=== PATIENT | female | born 1975 | race Caucasian/White ===

== ENCOUNTER 2018-06-21 19:38 | Emergency (ER) | payer MEDICAID, OTHER ==
--- NOTE | 2018-06-21 20:04 | EDM.PDOC ---
ED HPI GENERAL MEDICAL PROBLEM - General Chief Complaint: Respiratory Problem Stated Complaint: PT HAS COUGH Time Seen by Provider: 06/21/18 19:50 Source of Information: Reports: Patient History Limitations: Reports: No Limitations - History of Present Illness INITIAL COMMENTS - FREE TEXT/NARRATIVE: HISTORY AND PHYSICAL: History of present illness: Patient is a 43-year-old female presents to the ED today for a cough 2 days. Patient states on a few occasions she has coughed so hard she is vomited. Patient states she's been able to eat and drink per normal and then the cough denies any other complaints. Patient denies fever, chills, chest pain, shortness of breath. Denies headache. Denies abdominal pain, diarrhea, constipation, or dysuria. Has not noted any blood in urine or stool. Patient has been eating and drinking appropriately. Review of systems: As per history of present illness and below otherwise all systems reviewed and negative. Past medical history: As per history of present illness and as reviewed below otherwise noncontributory. Surgical history: As per history of present illness and as reviewed below otherwise noncontributory. Social history: See social history for further information Family history: As per history of present illness and as reviewed below otherwise noncontributory. Physical exam: General: Patient is alert, orientated, and in no acute distress. She is sitting comfortably on the exam table. HEENT: Atraumatic, normocephalic, pupils equal and reactive bilaterally, negative for conjunctival pallor or scleral icterus, mucous membranes moist, TMs normal bilaterally, throat clear, neck supple, nontender, trachea midline. No drooling or trismus noted. No meningeal signs. No hot potato voice noted. Lungs: Clear to auscultation, breath sounds equal bilaterally, chest nontender. Heart: S1S2, regular rate and rhythm without overt murmur Abdomen: Soft, nondistended, nontender. Negative for masses or hepatosplenomegaly. Negative for costovertebral tenderness. Pelvis: Stable nontender. Genitourinary: Deferred. Rectal: Deferred. Skin: Intact, warm, dry. No lesions or rashes noted. Extremities: Atraumatic, negative for cords or calf pain. Neurovascular unremarkable. Neuro: Awake, alert, oriented. Cranial nerves II through XII unremarkable. Cerebellum unremarkable. Motor and sensory unremarkable throughout. Exam nonfocal. Notes: Will do labs and imaging today. Discussed findings lab work and imaging with patient. Discussed the importance for follow-up with her primary care provider. Supportive care measures were reviewed and discussed. Voices understanding and is agreeable to plan of care. Denies any further questions or concerns at this time. Diagnostics: Strep, Chest XR Therapeutics: None Prescription: Anju Okeefe Impression: Bronchitis Plan: 1. Use inhaler/medications as prescribed. You can alternate ibuprofen or Tylenol as directed for pain and discomfort. 2. Follow-up with your primary care provider as discussed. 3. Return to ED as needed as discussed. Definitive disposition and diagnosis as appropriate pending reevaluation and review of above. 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 ED EXAM, GENERAL - Physical Exam Exam: See Below (See dictation) Course - Vital Signs Last Recorded V/S: Last Vital Signs Temp 36.7 C 06/21/18 19:45 Pulse 93 06/21/18 19:45 Resp 18 06/21/18 19:45 BP 142/83 H 06/21/18 19:45 Pulse Ox 95 06/21/18 19:45 - Orders/Labs/Meds Orders: Active Orders 24 hr Category Date Time Status Chest 2V [CR] Stat Exams 06/21/18 19:55 Taken CULTURE STREP A CONFIRMATION [RM] Stat Lab 06/21/18 20:08 Results STREP SCRN A RAPID W CULT CONF [RM] Stat Lab 06/21/18 20:08 Results Labs: Laboratory Tests 06/21/18 06/21/18 Range/Units 20:12 20:12 WBC 5.83 (4.0-11.0) K/uL RBC 4.72 (4.30-5.90) M/uL Hgb 15.0 (12.0-16.0) g/dL Hct 43.8 (36.0-46.0) % MCV 92.8 (80.0-98.0) fL MCH 31.8 (27.0-32.0) pg MCHC 34.2 (31.0-37.0) g/dL RDW Std Deviation 46.4 (28.0-62.0) fl RDW Coeff of Natalie 14 (11.0-15.0) % Plt Count 173 (150-400) K/uL MPV 11.50 (7.40-12.00) fL Neut % (Auto) 63.9 (48.0-80.0) % Lymph % (Auto) 19.9 (16.0-40.0) % [place] % (Auto) 11.0 (0.0-15.0) % Eos % (Auto) 5.0 (0.0-7.0) % Baso % (Auto) 0.2 (0.0-1.5) % Neut # (Auto) 3.7 (1.4-5.7) K/uL Lymph # (Auto) 1.2 (0.6-2.4) K/uL [place] # (Auto) 0.6 (0.0-0.8) K/uL Eos # (Auto) 0.3 (0.0-0.7) K/uL Baso # (Auto) 0.0 (0.0-0.1) K/uL Nucleated RBC % 0.0 /100WBC Nucleated RBCs # 0 K/uL Sodium 141 (136-145) mmol/L Potassium 3.7 (3.5-5.1) mmol/L Chloride 106 (98-107) mmol/L Carbon Dioxide 23.8 (21.0-32.0) mmol/L BUN 9 (7.0-18.0) mg/dL Creatinine 1.0 (0.6-1.0) mg/dL Est Cr Clr Drug Dosing 63.28 mL/min Estimated GFR (MDRD) > 60.0 ml/min Glucose 44 L (74-106) mg/dL Calcium 8.6 (8.5-10.1) mg/dL Total Bilirubin 0.2 (0.2-1.0) mg/dL AST 56 H (15-37) IU/L ALT 44 (14-63) IU/L Alkaline Phosphatase 88 (46-116) U/L Total Protein 7.1 (6.4-8.2) g/dL Albumin 3.7 (3.4-5.0) g/dL Globulin 3.4 (2.6-4.0) g/dL Albumin/Globulin Ratio 1.1 (0.9-1.6) Departure - Departure Time of Disposition: 22:11 Disposition: Home, Self-Care 01 Clinical Impression: Bronchitis - Discharge Information Referrals: Lalitha Whaley DO [Primary Care Provider] - Forms: ED Department Discharge Additional Instructions: The following information is given to patients seen in the emergency department who are being discharged to home. This information is to outline your options for follow-up care. We provide all patients seen in our emergency department with a follow-up referral. The need for follow-up, as well as the timing and circumstances, are variable depending upon the specifics of your emergency department visit. If you don't have a primary care physician on staff, we will provide you with a referral. We always advise you to contact your personal physician following an emergency department visit to inform them of the circumstance of the visit and for follow-up with them and/or the need for any referrals to a consulting specialist. The emergency department will also refer you to a specialist when appropriate. This referral assures that you have the opportunity for follow-up care with a specialist. All of these measure are taken in an effort to provide you with optimal care, which includes your follow-up. Under all circumstances we always encourage you to contact your private physician who remains a resource for coordinating your care. When calling for follow-up care, please make the office aware that this follow-up is from your recent emergency room visit. If for any reason you are refused follow-up, please contact the [facility] Emergency Department at and asked to speak to the emergency department charge nurse. [facility] [address] [place], [place] [address], [place] [address] [facility] [address] [place] [address] 1. Use inhaler/medication as prescribed. You can alternate ibuprofen or Tylenol as directed for pain and discomfort. 2. Follow-up with your primary care provider as discussed. 3. Return to ED as needed as discussed. - My Orders Last 24 Hours: My Active Orders 06/21/18 19:55 Chest 2V [CR] Stat 06/21/18 20:08 CULTURE STREP A CONFIRMATION [RM] Stat STREP SCRN A RAPID W CULT CONF [RM] Stat - Assessment/Plan Last 24 Hours: My Active Orders 06/21/18 19:55 Chest 2V [CR] Stat 06/21/18 20:08 CULTURE STREP A CONFIRMATION [RM] Stat STREP SCRN A RAPID W CULT CONF [RM] Stat
[2018-06-21 20:41] LABS: CHLORIDE,CL 106 mmol/L (98-107); SODIUM,NA 141 mmol/L (136-145)
--- NOTE | 2018-06-23 09:50 | CR ---
EXAM DATE: 06/21/18 PATIENT'S AGE: 43 Patient: JOB COTE Facility: [facility] : 1975 Study: XRay-Chest -06/21/2018 10:00:51 PM Ordering Physician: jose m Final Report: INDICATION: Shortness of breath TECHNIQUE: Chest 2 views. COMPARISON: August 25, 2013 FINDINGS: Cardiovascular and mediastinum: Heart size and vasculature are normal in caliber and appearance. Mediastinum is within normal limits. Lungs and pleural spaces: Lungs are clear. No sign of infiltrate or mass. No sign of pleural effusion. No pneumothorax. Bones and soft tissues: No significant findings. IMPRESSION: No sign of acute disease. Dictated by Rajwinder Childs MD @ Jun 21 2018 10:14PM Signed by: Rajwinder Childs MD @06/21/2018 10:14:13 PM (Electronic Signature) Report Signed by Proxy. [facility]
== END 2018-06-21 22:25 | disposition home or self-care (01) ==
LOC: MW.ED 19:38
DX: J40 Bronchitis, not specified as acute or chronic (principal); F17.210 Nicotine dependence, cigarettes, uncomplicated; E10.9 Type 1 diabetes mellitus without complications
CPT/HCPCS: 36415; 71046; 71046-26; 80053; 85025; 87081; 87804; 87880-QW; 99283-25

== ENCOUNTER 2018-08-10 09:07 | Emergency (ER) | payer MEDICAID ==
--- NOTE | 2018-08-10 09:51 | EDM.PDOC ---
ED HPI GENERAL MEDICAL PROBLEM - General Chief Complaint: ENT Problem Stated Complaint: TOOTH INFECTION Time Seen by Provider: 08/10/18 09:27 - History of Present Illness INITIAL COMMENTS - FREE TEXT/NARRATIVE: HISTORY AND PHYSICAL: History of present illness: Patient's a 43-year-old female presents with a concern of dental pain and possible dental abscess. She denies fever chills nausea vomiting or other complaints Review of systems: As per history of present illness and below otherwise all systems reviewed and negative. Past medical history: As per history of present illness and as reviewed below otherwise noncontributory. Surgical history: As per history of present illness and as reviewed below otherwise noncontributory. Social history: No reported history of drug or alcohol abuse. Family history: As per history of present illness and as reviewed below otherwise noncontributory. Physical exam: HEENT: Atraumatic, normocephalic, pupils reactive, negative for conjunctival pallor or scleral icterus, mucous membranes moist, throat clear, neck supple, nontender, trachea midline. Generally poor dentition patient does have some tenderness in the region of her lateral incisor to palpation of the gingiva on the right side. Lungs: Clear to auscultation, breath sounds equal bilaterally, chest nontender. Heart: S1S2, regular, negative for clicks, rubs, or JVD. Abdomen: Soft, nondistended, nontender. Negative for masses or hepatosplenomegaly. Negative for costovertebral tenderness. Pelvis: Stable nontender. Genitourinary: Deferred. Rectal: Deferred. Extremities: Atraumatic, negative for cords or calf pain. Neurovascular unremarkable. Neuro: Awake, alert, oriented. Cranial nerves II through XII unremarkable. Cerebellum unremarkable. Motor and sensory unremarkable throughout. Exam nonfocal. Diagnostics: None Therapeutics: Dental balls Impression: Dentalgia Definitive disposition and diagnosis as appropriate pending reevaluation and review of above. 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 ED EXAM, GENERAL - Physical Exam Exam: See Below (See dictation) Course - Vital Signs Last Recorded V/S: Last Vital Signs Temp 36.3 C 08/10/18 09:18 Pulse 107 H 08/10/18 09:18 Resp 18 08/10/18 09:18 BP 132/81 08/10/18 09:18 Pulse Ox 93 L 08/10/18 09:18 Departure - Departure Time of Disposition: 09:50 Disposition: Home, Self-Care 01 Condition: Good Clinical Impression: Dentalgia, Dental abscess - Discharge Information Referrals: PCP,Unknown [Primary Care Provider] - Additional Instructions: The following information is given to patients seen in the emergency department who are being discharged to home. This information is to outline your options for follow-up care. We provide all patients seen in our emergency department with a follow-up referral. The need for follow-up, as well as the timing and circumstances, are variable depending upon the specifics of your emergency department visit. If you don't have a primary care physician on staff, we will provide you with a referral. We always advise you to contact your personal physician following an emergency department visit to inform them of the circumstance of the visit and for follow-up with them and/or the need for any referrals to a consulting specialist. The emergency department will also refer you to a specialist when appropriate. This referral assures that you have the opportunity for followup care with a specialist. All of these measure are taken in an effort to provide you with optimal care, which includes your followup. Under all circumstances we always encourage you to contact your private physician who remains a resource for coordinating your care. When calling for followup care, please make the office aware that this follow-up is from your recent emergency room visit. If for any reason you are refused follow-up, please contact the [facility] emergency department at and asked to speak to the emergency department charge nurse. Maria Alejandra Del Valle as prescribed dental balls as directed Motrin/Tylenol as directed follow-up with dentist return as needed as discussed
[2018-08-10] MEDS ORDERED: Lidocaine 2% Viscous Solution 15 ML Cup PO ONE (09:54)
[2018-08-10] MEDS ORDERED: Benzocaine 20% Topical Spray UD MUCMEM ONE (09:55)
== END 2018-08-10 10:04 | disposition home or self-care (01) ==
LOC: MW.ED 09:07
DX: K04.7 Periapical abscess without sinus (principal); E10.9 Type 1 diabetes mellitus without complications; F17.210 Nicotine dependence, cigarettes, uncomplicated
CPT/HCPCS: 99282; A9270; 99283

== ENCOUNTER 2019-02-24 18:06 | Observation (INO) | payer MEDICAID ==
[2019-02-24] MEDS ORDERED: Sodium Chloride 0.9% 10 ML Syringe FLUSH PRN (18:14)
[2019-02-24] MEDS ORDERED: Sodium Chloride 0.9% 2.5 ML Syringe FLUSH PRN (18:14)
[2019-02-24] MEDS ORDERED: Sodium Chloride 0.9% 1,000 ML IV ONE (18:14)
--- NOTE | 2019-02-24 18:21 | EDM.PDOC ---
ED HPI GENERAL MEDICAL PROBLEM - General Stated Complaint: EMS ARRIVAL Time Seen by Provider: 02/24/19 18:12 - History of Present Illness INITIAL COMMENTS - FREE TEXT/NARRATIVE: HISTORY AND PHYSICAL: History of present illness: The patient is a 44-year-old female with a history of type 1 diabetes who is a regular alcohol drinker according to the daughter, drinking at least heavily 4 nights a week, who presents with confusion and altered mental status that the daughter noticed this afternoon at about 5 PM. The patient was last spoken to normal by a neighbor at 8 AM and the daughter has not seen her until she went home to find her and noticed that she was confused and not acting appropriately. Nobody saw this patient throughout the day and the patient does not offer much history. The patient initially refused to come via EMS and was refusing to calm with the daughter and police were called to the scene and she was brought here in handcuffs for further care and evaluation. Here in the ED she denies any complaints but does not answer questions appropriately and yawns repeatedly on my evaluation. She is moving all extremities and her voice and speech are intact and not garbled. According to the daughter this patient usually calls her throughout the day and she did not receive any phone calls. There is no evidence of any trauma or disruption of the household according to family and EMS. The patient says that she ate today and she did not have any vomiting but again she will not answer my questions about shortness of breath chest pain or other systemic issues. The daughter says she was in her usual state of good health when she dropped her off at home last evening from the bar. According to the daughter she was called to come into the carotids and bring her home after drinking heavily last evening. Further events throughout the course the day are unknown as the patient was by herself. The daughter pulled nursing aside and is concerned that she might have drugs on board but the patient does not have a history of chronic drug use. Review of systems: As per history of present illness and below otherwise all systems reviewed and negative. Past medical history: As per history of present illness and as reviewed below otherwise noncontributory. Surgical history: As per history of present illness and as reviewed below otherwise noncontributory. Social history: No reported history of drug or alcohol abuse. Family history: As per history of present illness and as reviewed below otherwise noncontributory. Physical exam: General: Well-developed well-nourished female who yawns frequently in the ED but is moving all extremities and has normal speech. She is not breathless and vital signs are noted by me. HEENT: Atraumatic, normocephalic, pupils reactive, negative for conjunctival pallor or scleral icterus, mucous membranes moist, throat clear, neck supple, nontender, trachea midline. As no evidence of any soft tissue injury to the scalp or skull and there is no facial trauma appreciated. Teeth and bite are intact and there is no tongue injury. Lungs: Clear to auscultation but diminished air exchange in the bases and poor effort. There is no work of breathing wheezing or stridor,, breath sounds equal bilaterally, chest nontender. Heart: S1S2, regular rhythm and tachycardic rate on my evaluation but no murmurs , negative for clicks, rubs, or JVD. Abdomen: Soft, nondistended, nontender. Negative for masses or hepatosplenomegaly. Negative for costovertebral tenderness. Pelvis: Stable nontender. Genitourinary: Deferred. Rectal: Deferred. Extremities: Atraumatic, negative for cords or calf pain. Neurovascular unremarkable. No defects deformities or tenderness appreciated on extremities and there is full range of motion without deficits Neuro: Awake, alert, patient is confused and will not follow simple commands and perseverates with her answers. Cranial nerves II through XII unremarkable. Cerebellum unremarkable. Motor and sensory unremarkable throughout. Exam nonfocal. Back: There are no midline step-offs in his defects of the thoracic or lumbar spine and no soft tissue injuries are appreciated Diagnostics: EKG CBC CMP amylase lipase INR Tylenol and aspirin levels alcohol level ammonia level magnesium venous blood gas troponin TSH chest x-ray CT scan of the head. UDS [employer]: IV O2 monitor IV fluids According to the history were given the last known well time of this patient is 8 AM. 1908: this was discussed with the hospitalist Dr. Olea who accepts the patient for observatioon to telemetry. He is aware that the labs are pending and we will recontact him with abnormalities. Impression: altered mental status with history of chronic alcohol use/abuse Definitive disposition and diagnosis as appropriate pending reevaluation and review of above. - Related Data Allergies Allergy/AdvReac Type Severity Reaction Status Date / Time No Known Allergies Allergy Verified 02/24/19 18:22 Home Meds: Home Meds Insulin Isophane NPH, Human [HumuLIN N] 10 unit SQ BID 08/24/13 [History] Insulin Regular, Human [HumuLIN R] 8 unit SUBCUT BIDAC 08/24/13 [History] Ondansetron [Zofran ODT] 4 mg PO Q6H PRN #15 tab.dis 02/25/19 [Rx] Sulfamethoxazole/Trimethoprim [Bactrim Ds Tablet] 1 each PO BID #10 tablet 02/25 [Rx] Past Medical History [employer] History: Reports: Endocrine/Metabolic History: Reports: Diabetes, Type I - Infectious Disease History Infectious Disease History: Reports: Chicken Pox, Measles - Past Surgical History Female Surgical History: Reports: Section Social & Family History - Family History Family Medical History: Noncontributory ED ROS GENERAL - Review of Systems Review Of Systems: Comprehensive ROS is negative, except as noted in HPI. ED EXAM, GENERAL - Physical Exam Exam: See Below (See dictation) Course - Vital Signs Last Recorded V/S: Last Vital Signs Temp 36.5 C 02/25/19 07:05 Pulse 101 H 02/25/19 07:05 Resp 18 02/25/19 07:05 BP 138/60 02/25/19 07:05 Pulse Ox 97 02/25/19 07:05 - Orders/Labs/Meds Orders: Active Orders 24 hr Category Date Time Status Patient Status [ADT] Stat ADT 02/24/19 19:12 Active Blood Glucose Check, Bedside [RC] ONETIME Care 02/24/19 18:12 Active EKG Documentation Completion [RC] STAT Care 02/24/19 18:12 Active Oxygen Therapy, ED [RC] ASDIRECTED Care 02/24/19 18:12 Active Pulse Oximetry [RC] ASDIRECTED Care 02/24/19 18:12 Active CULTURE URINE [RM] Stat Lab 02/24/19 19:05 Received Saline Lock Insert [OM.PC] Stat Oth 02/24/19 18:12 Ordered Labs: Laboratory Tests 02/24/19 02/24/19 02/24/19 Range/Units 18:45 18:45 18:45 WBC 15.77 H (4.0-11.0) K/uL RBC 4.79 (4.30-5.90) M/uL Hgb 15.4 (12.0-16.0) g/dL Hct 43.9 (36.0-46.0) % MCV 91.6 (80.0-98.0) fL MCH 32.2 H (27.0-32.0) pg MCHC 35.1 (31.0-37.0) g/dL RDW Std Deviation 42.7 (28.0-62.0) fl RDW Coeff of Natalie 13 (11.0-15.0) % Plt Count 233 (150-400) K/uL MPV 11.40 (7.40-12.00) fL Neut % (Auto) 85.3 H (48.0-80.0) % Lymph % (Auto) 6.6 L (16.0-40.0) % [place] % (Auto) 7.4 (0.0-15.0) % Eos % (Auto) 0.4 (0.0-7.0) % Baso % (Auto) 0.3 (0.0-1.5) % Neut # (Auto) 13.5 H (1.4-5.7) K/uL Lymph # (Auto) 1.0 (0.6-2.4) K/uL [place] # (Auto) 1.2 H (0.0-0.8) K/uL Eos # (Auto) 0.1 (0.0-0.7) K/uL Baso # (Auto) 0.0 (0.0-0.1) K/uL INR 1.00 VBG pH (7.31-7.41) VBG pCO2 (35-45) mmHG VBG pO2 (30-40) mmHG VBG HCO3 (22-30) mEq/L VBG Total CO2 (41-51) mmol/L VBG Base Excess (-3.0-3.0) Sodium 141 (136-145) mmol/L Potassium 4.4 (3.5-5.1) mmol/L Chloride 105 (98-107) mmol/L Carbon Dioxide 22.3 (21.0-32.0) mmol/L BUN 11 (7.0-18.0) mg/dL Creatinine 1.0 (0.6-1.0) mg/dL Est Cr Clr Drug Dosing 65.27 mL/min Estimated GFR (MDRD) > 60.0 ml/min Glucose 129 H (74-106) mg/dL Calcium 8.6 (8.5-10.1) mg/dL Magnesium 1.8 (1.8-2.4) mg/dL Total Bilirubin 0.6 (0.2-1.0) mg/dL AST 30 (15-37) IU/L ALT 18 (14-63) IU/L Alkaline Phosphatase 83 (46-116) U/L Ammonia (19-54) ug/dL Troponin I < 0.050 (0.000-0.056) ng/mL Total Protein 7.4 (6.4-8.2) g/dL Albumin 4.2 (3.4-5.0) g/dL Globulin 3.2 (2.6-4.0) g/dL Albumin/Globulin Ratio 1.3 (0.9-1.6) Amylase 84 (25-115) U/L Lipase 66 L (73-393) U/L TSH 3rd Generation 8.25 H (0.36-3.74) uIU/mL Urine Color Urine Appearance Urine pH (5.0-8.0) Ur Specific [place] (1.001-1.035) Urine Protein (NEGATIVE) mg/dL Urine Glucose (UA) (NEGATIVE) mg/dL Urine Ketones (NEGATIVE) mg/dL Urine Occult Blood (NEGATIVE) Urine Nitrite (NEGATIVE) Urine Bilirubin (NEGATIVE) Urine Urobilinogen (<2.0) EU/dL Ur Leukocyte Esterase (NEGATIVE) Urine RBC (0-2/HPF) Urine WBC (0-5/HPF) Ur Epithelial Cells (NONE-FEW) Urine Bacteria (NEGATIVE) Urine Mucus (NONE-MOD) Urine HCG, Qual (NEGATIVE) Salicylates 4.3 (0-20) mg/dL Urine Opiates Screen (NEGATIVE) Ur Oxycodone Screen (NEGATIVE) Urine Methadone Screen (NEGATIVE) Acetaminophen <2.0 ug/mL Ur Barbiturates Screen (NEGATIVE) Ur Phencyclidine Scrn (NEGATIVE) Ur Amphetamine Screen (NEGATIVE) U Methamphetamines Scrn (NEGATIVE) U Benzodiazepines Scrn (NEGATIVE) U Cocaine Metab Screen (NEGATIVE) U Marijuana (THC) Screen (NEGATIVE) Ethyl Alcohol 4 mg/dL 02/24/19 02/24/19 02/24/19 Range/Units 18:45 18:45 19:05 WBC (4.0-11.0) K/uL RBC (4.30-5.90) M/uL Hgb (12.0-16.0) g/dL Hct (36.0-46.0) % MCV (80.0-98.0) fL MCH (27.0-32.0) pg MCHC (31.0-37.0) g/dL RDW Std Deviation (28.0-62.0) fl RDW Coeff of Natalie (11.0-15.0) % Plt Count (150-400) K/uL MPV (7.40-12.00) fL Neut % (Auto) (48.0-80.0) % Lymph % (Auto) (16.0-40.0) % [place] % (Auto) (0.0-15.0) % Eos % (Auto) (0.0-7.0) % Baso % (Auto) (0.0-1.5) % Neut # (Auto) (1.4-5.7) K/uL Lymph # (Auto) (0.6-2.4) K/uL [place] # (Auto) (0.0-0.8) K/uL Eos # (Auto) (0.0-0.7) K/uL Baso # (Auto) (0.0-0.1) K/uL INR VBG pH 7.39 (7.31-7.41) VBG pCO2 39 (35-45) mmHG VBG pO2 35 (30-40) mmHG VBG HCO3 23 (22-30) mEq/L VBG Total CO2 21 L (41-51) mmol/L VBG Base Excess -1.4 (-3.0-3.0) Sodium (136-145) mmol/L Potassium (3.5-5.1) mmol/L Chloride (98-107) mmol/L Carbon Dioxide (21.0-32.0) mmol/L BUN (7.0-18.0) mg/dL Creatinine (0.6-1.0) mg/dL Est Cr Clr Drug Dosing mL/min Estimated GFR (MDRD) ml/min Glucose (74-106) mg/dL Calcium (8.5-10.1) mg/dL Magnesium (1.8-2.4) mg/dL Total Bilirubin (0.2-1.0) mg/dL AST (15-37) IU/L ALT (14-63) IU/L Alkaline Phosphatase (46-116) U/L Ammonia 22 (19-54) ug/dL Troponin I (0.000-0.056) ng/mL Total Protein (6.4-8.2) g/dL Albumin (3.4-5.0) g/dL Globulin (2.6-4.0) g/dL Albumin/Globulin Ratio (0.9-1.6) Amylase (25-115) U/L Lipase (73-393) U/L TSH 3rd Generation (0.36-3.74) uIU/mL Urine Color YELLOW Urine Appearance SLT CLOUDY Urine pH 5.5 (5.0-8.0) Ur Specific [place] >= 1.030 (1.001-1.035) Urine Protein TRACE H (NEGATIVE) mg/dL Urine Glucose (UA) NEGATIVE (NEGATIVE) mg/dL Urine Ketones 40 H (NEGATIVE) mg/dL Urine Occult Blood LARGE H (NEGATIVE) Urine Nitrite POSITIVE H (NEGATIVE) Urine Bilirubin NEGATIVE (NEGATIVE) Urine Urobilinogen 0.2 (<2.0) EU/dL Ur Leukocyte Esterase NEGATIVE (NEGATIVE) Urine RBC 35-40 (0-2/HPF) Urine WBC 3-5 (0-5/HPF) Ur Epithelial Cells FEW (NONE-FEW) Urine Bacteria 3+ H (NEGATIVE) Urine Mucus LIGHT (NONE-MOD) Urine HCG, Qual (NEGATIVE) Salicylates (0-20) mg/dL Urine Opiates Screen (NEGATIVE) Ur Oxycodone Screen (NEGATIVE) Urine Methadone Screen (NEGATIVE) Acetaminophen ug/mL Ur Barbiturates Screen (NEGATIVE) Ur Phencyclidine Scrn (NEGATIVE) Ur Amphetamine Screen (NEGATIVE) U Methamphetamines Scrn (NEGATIVE) U Benzodiazepines Scrn (NEGATIVE) U Cocaine Metab Screen (NEGATIVE) U Marijuana (THC) Screen (NEGATIVE) Ethyl Alcohol mg/dL 02/24/19 02/24/19 Range/Units 19:05 19:05 WBC (4.0-11.0) K/uL RBC (4.30-5.90) M/uL Hgb (12.0-16.0) g/dL Hct (36.0-46.0) % MCV (80.0-98.0) fL MCH (27.0-32.0) pg MCHC (31.0-37.0) g/dL RDW Std Deviation (28.0-62.0) fl RDW Coeff of Natalie (11.0-15.0) % Plt Count (150-400) K/uL MPV (7.40-12.00) fL Neut % (Auto) (48.0-80.0) % Lymph % (Auto) (16.0-40.0) % [place] % (Auto) (0.0-15.0) % Eos % (Auto) (0.0-7.0) % Baso % (Auto) (0.0-1.5) % Neut # (Auto) (1.4-5.7) K/uL Lymph # (Auto) (0.6-2.4) K/uL [place] # (Auto) (0.0-0.8) K/uL Eos # (Auto) (0.0-0.7) K/uL Baso # (Auto) (0.0-0.1) K/uL INR VBG pH (7.31-7.41) VBG pCO2 (35-45) mmHG VBG pO2 (30-40) mmHG VBG HCO3 (22-30) mEq/L VBG Total CO2 (41-51) mmol/L VBG Base Excess (-3.0-3.0) Sodium (136-145) mmol/L Potassium (3.5-5.1) mmol/L Chloride (98-107) mmol/L Carbon Dioxide (21.0-32.0) mmol/L BUN (7.0-18.0) mg/dL Creatinine (0.6-1.0) mg/dL Est Cr Clr Drug Dosing mL/min Estimated GFR (MDRD) ml/min Glucose (74-106) mg/dL Calcium (8.5-10.1) mg/dL Magnesium (1.8-2.4) mg/dL Total Bilirubin (0.2-1.0) mg/dL AST (15-37) IU/L ALT (14-63) IU/L Alkaline Phosphatase (46-116) U/L Ammonia (19-54) ug/dL Troponin I (0.000-0.056) ng/mL Total Protein (6.4-8.2) g/dL Albumin (3.4-5.0) g/dL Globulin (2.6-4.0) g/dL Albumin/Globulin Ratio (0.9-1.6) Amylase (25-115) U/L Lipase (73-393) U/L TSH 3rd Generation (0.36-3.74) uIU/mL Urine Color Urine Appearance Urine pH (5.0-8.0) Ur Specific [place] (1.001-1.035) Urine Protein (NEGATIVE) mg/dL Urine Glucose (UA) (NEGATIVE) mg/dL Urine Ketones (NEGATIVE) mg/dL Urine Occult Blood (NEGATIVE) Urine Nitrite (NEGATIVE) Urine Bilirubin (NEGATIVE) Urine Urobilinogen (<2.0) EU/dL Ur Leukocyte Esterase (NEGATIVE) Urine RBC (0-2/HPF) Urine WBC (0-5/HPF) Ur Epithelial Cells (NONE-FEW) Urine Bacteria (NEGATIVE) Urine Mucus (NONE-MOD) Urine HCG, Qual NEGATIVE (NEGATIVE) Salicylates (0-20) mg/dL Urine Opiates Screen NEGATIVE (NEGATIVE) Ur Oxycodone Screen NEGATIVE (NEGATIVE) Urine Methadone Screen NEGATIVE (NEGATIVE) Acetaminophen ug/mL Ur Barbiturates Screen NEGATIVE (NEGATIVE) Ur Phencyclidine Scrn NEGATIVE (NEGATIVE) Ur Amphetamine Screen NEGATIVE (NEGATIVE) U Methamphetamines Scrn NEGATIVE (NEGATIVE) U Benzodiazepines Scrn NEGATIVE (NEGATIVE) U Cocaine Metab Screen NEGATIVE (NEGATIVE) U Marijuana (THC) Screen NEGATIVE (NEGATIVE) Ethyl Alcohol mg/dL Meds: Medications Discontinued Medications Generic Name Dose Route Start Last Admin Trade Name Freq PRN Reason Stop Dose Admin Ceftriaxone Sodium 1 gm 02/24/19 23:00 Rocephin IVPUSH Q24H SARWAT Haloperidol Lactate 10 mg 02/24/19 18:57 02/24/19 18:58 Haldol IM 02/24/19 18:58 10 mg ONETIME ONE Administration Haloperidol Lactate Confirm 02/24/19 18:56 02/24/19 20:01 Haldol Administered 02/24/19 18:57 Not Given Dose 10 mg .ROUTE .STK-MED ONE Sodium Chloride 1,000 mls @ 999 mls/hr 02/24/19 18:14 02/24/19 19:35 Normal Saline IV 12/03/19 19:14 999 mls/hr STAT ONE Administration Multivitamins/Minerals 10 ml/ 1,011.2 mls @ 250 mls/hr 02/24/19 18:57 20:07 Thiamine HCl 100 mg/ Folic IV 02/24/19 22:59 250 mls/hr Acid 1 mg/ Sodium Chloride ONETIME ONE Administration Ceftriaxone Sodium/Dextrose 1 50 mls @ 100 mls/hr 02/24/19 19:33 02/24/19 23: 43 gm/ Premix IV 02/24/19 20:02 Not Given ONETIME ONE Ceftriaxone Sodium/Dextrose 1 50 mls @ 100 mls/hr 02/24/19 23:15 02/24/19 23: 12 gm/ Premix IV 100 mls/hr Q24H SARWAT Administration Insulin Aspart 0 unit 02/25/19 07:30 02/25/19 07:58 Novolog SUBCUT 2 units TIDAC SARWAT Administration Protocol Lorazepam 1 mg 02/24/19 18:58 02/24/19 19:00 Ativan IVPUSH 02/24/19 18:59 1 mg ONETIME ONE Administration Lorazepam Confirm 02/24/19 18:59 02/24/19 20:01 Ativan Administered 02/24/19 19:00 Not Given Dose 2 mg .ROUTE .STK-MED ONE Lorazepam 0 mg 02/24/19 21:50 Ativan IVPUSH Q4H PRN Agitation Protocol Ondansetron HCl 4 mg 02/25/19 11:51 02/25/19 12:05 Zofran Odt PO 02/25/19 11:52 4 mg ONETIME ONE Administration Sodium Chloride 10 ml 02/24/19 18:14 02/24/19 19:40 Saline Flush FLUSH 10 ml ASDIRECTED PRN Administration Keep Vein Open Sodium Chloride 2.5 ml 02/24/19 18:14 02/24/19 19:39 Saline Flush FLUSH 2.5 ml ASDIRECTED PRN Administration Keep Vein Open Departure - Departure Time of Disposition: 19:00 Disposition: Refer to Observation Condition: Fair Clinical Impression: Altered mental status Qualifiers: Altered mental status type: unspecified Qualified Code(s): R41.82 - Altered mental status, unspecified - Discharge Information - My Orders Last 24 Hours: My Active Orders 02/24/19 18:12 Blood Glucose Check, Bedside [RC] ONETIME EKG Documentation Completion [RC] STAT Oxygen Therapy, ED [RC] ASDIRECTED Pulse Oximetry [RC] ASDIRECTED Saline Lock Insert [OM.PC] Stat 02/24/19 19:05 CULTURE URINE [RM] Stat 02/24/19 19:12 Patient Status [ADT] Stat - Assessment/Plan Last 24 Hours: My Active Orders 02/24/19 18:12 Blood Glucose Check, Bedside [RC] ONETIME EKG Documentation Completion [RC] STAT Oxygen Therapy, ED [RC] ASDIRECTED Pulse Oximetry [RC] ASDIRECTED Saline Lock Insert [OM.PC] Stat 02/24/19 19:05 CULTURE URINE [RM] Stat 02/24/19 19:12 Patient Status [ADT] Stat
--- NOTE | 2019-02-24 18:52 | CR ---
INDICATION: diabetic ketoacidosis TECHNIQUE: Chest radiograph 1 view COMPARISON: 06/21/18 FINDINGS: Severe degradation of image quality noted due to body habitus. Mediastinum: The mediastinum is normal in appearance. The heart silhouette is normal in size and morphology. Lung: Both lungs are unremarkable in appearance with small lung volumes. No sign of pleural effusion seen. No pneumothorax is identified. Bone and Soft tissue: Unremarkable for age. IMPRESSION: 1. No acute cardiopulmonary disease is seen. Dictated by: Jose Carlos Cantor MD @ 02/24/2019 18:52:10 (Electronically Signed)
[2019-02-24] MEDS ORDERED: Haloperidol Lactate 5 MG/ML SDV ONE (18:56)
[2019-02-24] MEDS ORDERED: Haloperidol Lactate 5 MG/ML SDV IM ONE (18:57)
[2019-02-24] MEDS ORDERED: MVI, Adult with Vitamin K 10 ML, Thiamine 100 MG, Folic Acid 1 MG in Sodium Chloride 0.... IV ONE ×4 (18:57)
[2019-02-24] MEDS ORDERED: LORazepam 2 MG/ML SDV IVPUSH ONE (18:58)
[2019-02-24] MEDS ORDERED: LORazepam 2 MG/ML SDV ONE (18:59)
--- NOTE | 2019-02-24 18:59 | CT ---
INDICATION: Altered mental status, patient is diabetic, combative TECHNIQUE: CT Head without i.v. contrast. COMPARISON: 01/29/14 FINDINGS: CSF space: The ventricles are normal for age. Brain: No evidence of mass, acute infarction or hemorrhage is seen. No mass-effect or midline shift is seen. The brain parenchyma is otherwise normal in appearance with preservation of the thomas-white matter junction. Calvarium: The visualized paranasal sinuses are well aerated. The mastoid air cells are clear. The visualized orbits are grossly unremarkable. The calvarium is unremarkable in appearance with no fractures identified. IMPRESSION: 1. No evidence of acute infarction, intracranial hemorrhage, or mass-effect seen. Please note that all CT scans at this facility use dose modulation, iterative reconstruction, and/or weight-based dosing when appropriate to reduce radiation dose to as low as reasonably achievable. Dictated by: Jose Carlos Cantor MD @ 02/24/2019 18:58:22 (Electronically Signed)
[2019-02-24] MEDS ORDERED: cefTRIAXone 1 GM in Premix Bag 1 BAG IV ONE (19:33)
[2019-02-24 19:48] LABS: ACETAMINOPHEN <2.0 ug/mL; BLOOD UREA NITROGEN,BUN 11 mg/dL (7.0-18.0); CARBON DIOXIDE,CO2 22.3 mmol/L (21.0-32.0); CHLORIDE,CL 105 mmol/L (98-107); GLUCOSE RANDOM 129 mg/dL (74-106); LIPASE 66 U/L (73-393); POTASSIUM,K 4.4 mmol/L (3.5-5.1); SODIUM,NA 141 mmol/L (136-145)
[2019-02-24] MEDS ORDERED: LORazepam 2 MG/ML SDV IVPUSH PRN (21:50)
[2019-02-24] MEDS ORDERED: cefTRIAXone 1 GM Vial IVPUSH SCH (23:00)
[2019-02-24] MEDS ORDERED: cefTRIAXone 1 GM in Premix Bag 1 BAG IV SCH (23:15)
--- NOTE | 2019-02-24 23:33 | PCM.HP.2 ---
H&P History of Present Illness - General Date of Service: 02/24/19 Admit Problem/Dx: Admission Diagnosis/Problem Admission Diagnosis/Problem Altered mental status - History of Present Illness Initial Comments - Free Text/Narative: 44 yo female with pmh of DM who was brought by EMS in handcuffs to the ED. She has a history of heavy alcohol use. After a night of heavy drinking she was dropped home last night by daughter. When daughter checked on her she was acting abnormal. IN the ED she was noted to be agitated and give ativan and haldol. According the ED provider note daughter is concerned of possible drug use. Patient is calm during my interview on medical floor. She does not remember what happened today or last night. She denies any pain, fever or shortness of breath. - Related Data Allergies/Adverse Reactions: Allergies Allergy/AdvReac Type Severity Reaction Status Date / Time No Known Allergies Allergy Verified 02/24/19 18:22 Home Medications: Home Meds Insulin Isophane NPH, Human [HumuLIN N] 10 unit SQ BID 08/24/13 [History] Insulin Regular, Human [HumuLIN R] 8 unit SUBCUT BIDAC 08/24/13 [History] Ondansetron [Zofran ODT] 4 mg PO Q6H PRN #15 tab.dis 02/25/19 [Rx] Sulfamethoxazole/Trimethoprim [Bactrim Ds Tablet] 1 each PO BID #10 tablet 02/25 [Rx] Past Medical History HEENT History: Reports: None SEAT [employer]ER History: Reports: Musculoskeletal History: Reports: Fracture, Other (See Below) Other Musculoskeletal History: r arm fracture 6 years ago Endocrine/Metabolic History: Reports: Diabetes, Type I - Infectious Disease History Infectious Disease History: Reports: Chicken Pox - Past Surgical History HEENT Surgical History: Reports: None Female Surgical History: Reports: Section Social & Family History - Family History Family Medical History: Noncontributory - Tobacco Use Smoking Status *Q: Current Every Day Smoker Years of Tobacco use: 10 Packs/Tins Daily: 1 Second Hand Smoke Exposure: Yes - Caffeine Use Caffeine Use: Reports: Coffee, Soda - Alcohol Use Days Per Week of Alcohol Use: 7 Number of Drinks Per Day: 10 Total Drinks Per Week: 70 Date of Last Drink: 02/24/19 Time of Last Drink: 01:00 - Recreational Drug Use Recreational Drug Use: No Other Recreational Drug Type: unknown H&P Review of Systems - Review of Systems: Review Of Systems: Comprehensive ROS is negative, except as noted in HPI. Exam - Exam Exam: See Below - Vital Signs Vital Signs: Last Vital Signs Temp 37.8 C 02/24/19 20:01 Pulse 100 02/24/19 20:23 Resp 20 02/24/19 20:23 BP 149/82 H 02/24/19 20:23 Pulse Ox 91 L 02/24/19 20:23 Weight: 79 kg - Exam General: Alert, Cooperative. No: Mild Distress HEENT: Mucosa Moist & [place] Lungs: Clear to Auscultation, Normal Respiratory Effort Cardiovascular: Regular Rate, Regular Rhythm GI/Abdominal Exam: Normal Bowel Sounds, Soft, Non-Tender, No Distention, No Mass Extremities: Non-Tender, No Pedal Edema Skin: Warm, Dry, Intact Neurological: Strength Equal Bilateral - Patient Data Lab Results Last 24 hrs: Laboratory Results - last 24 hr 02/24/19 02/24/19 02/24/19 Range/Units 18:45 18:45 18:45 WBC 15.77 H (4.0-11.0) K/uL RBC 4.79 (4.30-5.90) M/uL Hgb 15.4 (12.0-16.0) g/dL Hct 43.9 (36.0-46.0) % MCV 91.6 (80.0-98.0) fL MCH 32.2 H (27.0-32.0) pg MCHC 35.1 (31.0-37.0) g/dL RDW Std Deviation 42.7 (28.0-62.0) fl RDW Coeff of Natalie 13 (11.0-15.0) % Plt Count 233 (150-400) K/uL MPV 11.40 (7.40-12.00) fL Neut % (Auto) 85.3 H (48.0-80.0) % Lymph % (Auto) 6.6 L (16.0-40.0) % Cedar % (Auto) 7.4 (0.0-15.0) % Eos % (Auto) 0.4 (0.0-7.0) % Baso % (Auto) 0.3 (0.0-1.5) % Neut # (Auto) 13.5 H (1.4-5.7) K/uL Lymph # (Auto) 1.0 (0.6-2.4) K/uL Cedar # (Auto) 1.2 H (0.0-0.8) K/uL Eos # (Auto) 0.1 (0.0-0.7) K/uL Baso # (Auto) 0.0 (0.0-0.1) K/uL INR 1.00 VBG pH (7.31-7.41) VBG pCO2 (35-45) mmHG VBG pO2 (30-40) mmHG VBG HCO3 (22-30) mEq/L VBG Total CO2 (41-51) mmol/L VBG Base Excess (-3.0-3.0) Lactate (0.20-2.00) mmol/L Sodium 141 (136-145) mmol/L Potassium 4.4 (3.5-5.1) mmol/L Chloride 105 (98-107) mmol/L Carbon Dioxide 22.3 (21.0-32.0) mmol/L BUN 11 (7.0-18.0) mg/dL Creatinine 1.0 (0.6-1.0) mg/dL Est Cr Clr Drug Dosing 65.27 mL/min Estimated GFR (MDRD) > 60.0 ml/min Glucose 129 H (74-106) mg/dL Calcium 8.6 (8.5-10.1) mg/dL Magnesium 1.8 (1.8-2.4) mg/dL Total Bilirubin 0.6 (0.2-1.0) mg/dL AST 30 (15-37) IU/L ALT 18 (14-63) IU/L Alkaline Phosphatase 83 (46-116) U/L Ammonia (19-54) ug/dL Troponin I < 0.050 (0.000-0.056) ng/mL Total Protein 7.4 (6.4-8.2) g/dL Albumin 4.2 (3.4-5.0) g/dL Globulin 3.2 (2.6-4.0) g/dL Albumin/Globulin Ratio 1.3 (0.9-1.6) Amylase 84 (25-115) U/L Lipase 66 L (73-393) U/L TSH 3rd Generation 8.25 H (0.36-3.74) uIU/mL Urine Color Urine Appearance Urine pH (5.0-8.0) Ur Specific Hondo (1.001-1.035) Urine Protein (NEGATIVE) mg/dL Urine Glucose (UA) (NEGATIVE) mg/dL Urine Ketones (NEGATIVE) mg/dL Urine Occult Blood (NEGATIVE) Urine Nitrite (NEGATIVE) Urine Bilirubin (NEGATIVE) Urine Urobilinogen (<2.0) EU/dL Ur Leukocyte Esterase (NEGATIVE) Urine RBC (0-2/HPF) Urine WBC (0-5/HPF) Ur Epithelial Cells (NONE-FEW) Urine Bacteria (NEGATIVE) Urine Mucus (NONE-MOD) Urine HCG, Qual (NEGATIVE) Salicylates 4.3 (0-20) mg/dL Urine Opiates Screen (NEGATIVE) Ur Oxycodone Screen (NEGATIVE) Urine Methadone Screen (NEGATIVE) Acetaminophen <2.0 ug/mL Ur Barbiturates Screen (NEGATIVE) Ur Phencyclidine Scrn (NEGATIVE) Ur Amphetamine Screen (NEGATIVE) U Methamphetamines Scrn (NEGATIVE) U Benzodiazepines Scrn (NEGATIVE) U Cocaine Metab Screen (NEGATIVE) U Marijuana (THC) Screen (NEGATIVE) Ethyl Alcohol 4 mg/dL 02/24/19 02/24/19 02/24/19 Range/Units 18:45 18:45 19:05 WBC (4.0-11.0) K/uL RBC (4.30-5.90) M/uL Hgb (12.0-16.0) g/dL Hct (36.0-46.0) % MCV (80.0-98.0) fL MCH (27.0-32.0) pg MCHC (31.0-37.0) g/dL RDW Std Deviation (28.0-62.0) fl RDW Coeff of Natalie (11.0-15.0) % Plt Count (150-400) K/uL MPV (7.40-12.00) fL Neut % (Auto) (48.0-80.0) % Lymph % (Auto) (16.0-40.0) % Cedar % (Auto) (0.0-15.0) % Eos % (Auto) (0.0-7.0) % Baso % (Auto) (0.0-1.5) % Neut # (Auto) (1.4-5.7) K/uL Lymph # (Auto) (0.6-2.4) K/uL Cedar # (Auto) (0.0-0.8) K/uL Eos # (Auto) (0.0-0.7) K/uL Baso # (Auto) (0.0-0.1) K/uL INR VBG pH 7.39 (7.31-7.41) VBG pCO2 39 (35-45) mmHG VBG pO2 35 (30-40) mmHG VBG HCO3 23 (22-30) mEq/L VBG Total CO2 21 L (41-51) mmol/L VBG Base Excess -1.4 (-3.0-3.0) Lactate (0.20-2.00) mmol/L Sodium (136-145) mmol/L Potassium (3.5-5.1) mmol/L Chloride (98-107) mmol/L Carbon Dioxide (21.0-32.0) mmol/L BUN (7.0-18.0) mg/dL Creatinine (0.6-1.0) mg/dL Est Cr Clr Drug Dosing mL/min Estimated GFR (MDRD) ml/min Glucose (74-106) mg/dL Calcium (8.5-10.1) mg/dL Magnesium (1.8-2.4) mg/dL Total Bilirubin (0.2-1.0) mg/dL AST (15-37) IU/L ALT (14-63) IU/L Alkaline Phosphatase (46-116) U/L Ammonia 22 (19-54) ug/dL Troponin I (0.000-0.056) ng/mL Total Protein (6.4-8.2) g/dL Albumin (3.4-5.0) g/dL Globulin (2.6-4.0) g/dL Albumin/Globulin Ratio (0.9-1.6) Amylase (25-115) U/L Lipase (73-393) U/L TSH 3rd Generation (0.36-3.74) uIU/mL Urine Color YELLOW Urine Appearance SLT CLOUDY Urine pH 5.5 (5.0-8.0) Ur Specific Hondo >= 1.030 (1.001-1.035) Urine Protein TRACE H (NEGATIVE) mg/dL Urine Glucose (UA) NEGATIVE (NEGATIVE) mg/dL Urine Ketones 40 H (NEGATIVE) mg/dL Urine Occult Blood LARGE H (NEGATIVE) Urine Nitrite POSITIVE H (NEGATIVE) Urine Bilirubin NEGATIVE (NEGATIVE) Urine Urobilinogen 0.2 (<2.0) EU/dL Ur Leukocyte Esterase NEGATIVE (NEGATIVE) Urine RBC 35-40 (0-2/HPF) Urine WBC 3-5 (0-5/HPF) Ur Epithelial Cells FEW (NONE-FEW) Urine Bacteria 3+ H (NEGATIVE) Urine Mucus LIGHT (NONE-MOD) Urine HCG, Qual (NEGATIVE) Salicylates (0-20) mg/dL Urine Opiates Screen (NEGATIVE) Ur Oxycodone Screen (NEGATIVE) Urine Methadone Screen (NEGATIVE) Acetaminophen ug/mL Ur Barbiturates Screen (NEGATIVE) Ur Phencyclidine Scrn (NEGATIVE) Ur Amphetamine Screen (NEGATIVE) U Methamphetamines Scrn (NEGATIVE) U Benzodiazepines Scrn (NEGATIVE) U Cocaine Metab Screen (NEGATIVE) U Marijuana (THC) Screen (NEGATIVE) Ethyl Alcohol mg/dL 02/24/19 02/24/19 02/24/19 Range/Units 19:05 19:05 23:00 WBC (4.0-11.0) K/uL RBC (4.30-5.90) M/uL Hgb (12.0-16.0) g/dL Hct (36.0-46.0) % MCV (80.0-98.0) fL MCH (27.0-32.0) pg MCHC (31.0-37.0) g/dL RDW Std Deviation (28.0-62.0) fl RDW Coeff of Natalie (11.0-15.0) % Plt Count (150-400) K/uL MPV (7.40-12.00) fL Neut % (Auto) (48.0-80.0) % Lymph % (Auto) (16.0-40.0) % Cedar % (Auto) (0.0-15.0) % Eos % (Auto) (0.0-7.0) % Baso % (Auto) (0.0-1.5) % Neut # (Auto) (1.4-5.7) K/uL Lymph # (Auto) (0.6-2.4) K/uL Cedar # (Auto) (0.0-0.8) K/uL Eos # (Auto) (0.0-0.7) K/uL Baso # (Auto) (0.0-0.1) K/uL INR VBG pH (7.31-7.41) VBG pCO2 (35-45) mmHG VBG pO2 (30-40) mmHG VBG HCO3 (22-30) mEq/L VBG Total CO2 (41-51) mmol/L VBG Base Excess (-3.0-3.0) Lactate 0.6 (0.20-2.00) mmol/L Sodium (136-145) mmol/L Potassium (3.5-5.1) mmol/L Chloride (98-107) mmol/L Carbon Dioxide (21.0-32.0) mmol/L BUN (7.0-18.0) mg/dL Creatinine (0.6-1.0) mg/dL Est Cr Clr Drug Dosing mL/min Estimated GFR (MDRD) ml/min Glucose (74-106) mg/dL Calcium (8.5-10.1) mg/dL Magnesium (1.8-2.4) mg/dL Total Bilirubin (0.2-1.0) mg/dL AST (15-37) IU/L ALT (14-63) IU/L Alkaline Phosphatase (46-116) U/L Ammonia (19-54) ug/dL Troponin I (0.000-0.056) ng/mL Total Protein (6.4-8.2) g/dL Albumin (3.4-5.0) g/dL Globulin (2.6-4.0) g/dL Albumin/Globulin Ratio (0.9-1.6) Amylase (25-115) U/L Lipase (73-393) U/L TSH 3rd Generation (0.36-3.74) uIU/mL Urine Color Urine Appearance Urine pH (5.0-8.0) Ur Specific Hondo (1.001-1.035) Urine Protein (NEGATIVE) mg/dL Urine Glucose (UA) (NEGATIVE) mg/dL Urine Ketones (NEGATIVE) mg/dL Urine Occult Blood (NEGATIVE) Urine Nitrite (NEGATIVE) Urine Bilirubin (NEGATIVE) Urine Urobilinogen (<2.0) EU/dL Ur Leukocyte Esterase (NEGATIVE) Urine RBC (0-2/HPF) Urine WBC (0-5/HPF) Ur Epithelial Cells (NONE-FEW) Urine Bacteria (NEGATIVE) Urine Mucus (NONE-MOD) Urine HCG, Qual NEGATIVE (NEGATIVE) Salicylates (0-20) mg/dL Urine Opiates Screen NEGATIVE (NEGATIVE) Ur Oxycodone Screen NEGATIVE (NEGATIVE) Urine Methadone Screen NEGATIVE (NEGATIVE) Acetaminophen ug/mL Ur Barbiturates Screen NEGATIVE (NEGATIVE) Ur Phencyclidine Scrn NEGATIVE (NEGATIVE) Ur Amphetamine Screen NEGATIVE (NEGATIVE) U Methamphetamines Scrn NEGATIVE (NEGATIVE) U Benzodiazepines Scrn NEGATIVE (NEGATIVE) U Cocaine Metab Screen NEGATIVE (NEGATIVE) U Marijuana (THC) Screen NEGATIVE (NEGATIVE) Ethyl Alcohol mg/dL Result Diagrams: 02/25/19 05:15 02/25/19 05:15 Problem List Initiated/Reviewed/Updated: Yes Orders Last 24hrs: Active Orders 24 hr Category Date Time Status Patient Status [ADT] Stat ADT 02/24/19 19:12 Active Antiembolic Devices [RC] PER UNIT ROUTINE Care 02/24/19 23:26 Ordered Blood Glucose Check, Bedside [RC] ONETIME Care 02/24/19 18:12 Active Blood Glucose Check, Bedside [RC] TIDMEALS Care 02/24/19 23:25 Ordered Cardiac Monitoring [RC] . DIRECTED Care 02/24/19 18:12 Active EKG Documentation Completion [RC] STAT Care 02/24/19 18:12 Active Oxygen Therapy [RC] PRN Care 02/24/19 23:25 Ordered Oxygen Therapy, ED [RC] ASDIRECTED Care 02/24/19 18:12 Active Pulse Oximetry [RC] ASDIRECTED Care 02/24/19 18:12 Active Up ad Stephanie [RC] ASDIRECTED Care 02/24/19 23:25 Ordered VTE/DVT Education [RC] PER UNIT ROUTINE Care 02/24/19 23:25 Ordered Vital Signs [RC] Q4H Care 02/24/19 23:25 Ordered [place] [employer] Diet [DIET] Diet 02/24/19 Breakfast Ordered BASIC METABOLIC PANEL,BMP [CHEM] AM Lab 02/25/19 05:11 Ordered CBC WITH AUTO DIFF [HEME] AM Lab 02/25/19 05:11 Ordered CULTURE URINE [RM] Stat Lab 02/24/19 19:05 Received MAGNESIUM [CHEM] AM Lab 02/25/19 05:11 Ordered PHOSPHORUS [CHEM] AM Lab 02/25/19 05:11 Ordered LORazepam [Ativan] Med 02/24/19 21:50 Active See Protocol IVPUSH Q4H PRN Sodium Chloride 0.9% [Saline Flush] Med 02/24/19 18:14 Active 10 ml FLUSH ASDIRECTED PRN Sodium Chloride 0.9% [Saline Flush] Med 02/24/19 18:14 Active 2.5 ml FLUSH ASDIRECTED PRN cefTRIAXone [Rocephin in Dextrose,Iso-Osm 1 GM/50 ML] 1 Med 02/24/19 23:15 Active gm Premix Bag 1 bag IV Q24H Saline Lock Insert [OM.PC] Stat Oth 02/24/19 18:12 Ordered Sequential Compression Device [OM.PC] Per Unit Routine Oth 02/24/19 23:25 Ordered Resuscitation Status Routine Resus Stat 02/24/19 23:25 Ordered Medication Orders Ceftriaxone Sodium/Dextrose 1 (gm/ Premix) 50 mls @ 100 mls/hr IV Q24H SARWAT Last Admin: 02/24/19 23:12 Dose: 100 mls/hr Lorazepam (Ativan) 0 mg IVPUSH Q4H PRN; Protocol PRN Reason: Agitation Sodium Chloride (Saline Flush) 10 ml FLUSH ASDIRECTED PRN PRN Reason: Keep Vein Open Last Admin: 02/24/19 19:40 Dose: 10 ml Sodium Chloride (Saline Flush) 2.5 ml FLUSH ASDIRECTED PRN PRN Reason: Keep Vein Open Last Admin: 02/24/19 19:39 Dose: 2.5 ml Assessment/Plan Comment:: 44 yo female admitted for altered mental status, likely related to UTI in the setting of alcohol abuse, dehydration, and diabetes. We will monitor overnight and treat with Rocephin.
[2019-02-25 06:49] LABS: BLOOD UREA NITROGEN,BUN 9 mg/dL (7.0-18.0); CARBON DIOXIDE,CO2 19.9 mmol/L (21.0-32.0); CHLORIDE,CL 105 mmol/L (98-107); GLUCOSE RANDOM 265 mg/dL (74-106); SODIUM,NA 139 mmol/L (136-145)
[2019-02-25] MEDS ORDERED: Insulin Aspart 100 Units/ML 3 ML Pen SUBCUT SCH (07:30)
[2019-02-25 09:57] LABS: HEMOGLOBIN A1C 7.4 % (4.5-6.2)
[2019-02-25] MEDS ORDERED: Ondansetron 4 MG Tab.DIS PO ONE (11:51)
--- NOTE | 2019-02-25 12:06 | PCM.DCSUM1 ---
Discharge Summary - Hospital Course Brief History: 44 yo female with pmh of DM who was brought by EMS in handcuffs to the ED. She has a history of heavy alcohol use. After a night of heavy drinking she was dropped home last night by daughter. When daughter checked on her she was acting abnormal. IN the ED she was noted to be agitated and give ativan and haldol. According the ED provider note daughter is concerned of possible drug use. Patient is calm during my interview on medical floor. She does not remember what happened today or last night. She denies any pain, fever or shortness of breath. Diagnosis: Stroke: No - Discharge Data Discharge Date: 02/25/19 Discharge Disposition: Against Medical Advice 07 Condition: Stable - Referral to Home Health Primary Care Physician: PCP None - Patient Instructions Diet: Diabetic Diet Activity: No Strenuous Activities Driving: Do Not Drive Showering/Bathing: May Shower Notify Provider of: Fever, Increased Pain, Swelling and Redness, Drainage, Nausea and/or Vomiting - Discharge Plan *PRESCRIPTION DRUG MONITORING PROGRAM REVIEWED*: Not Applicable *COPY OF PRESCRIPTION DRUG MONITORING REPORT IN PATIENT RONNY: Not Applicable Prescriptions/Med Rec: Ondansetron [Zofran ODT] 4 mg PO Q6H PRN #15 tab.dis PRN Reason: Nausea Sulfamethoxazole/Trimethoprim [Bactrim Ds Tablet] 1 each PO BID #10 tablet Home Medications: Home Meds Insulin Isophane NPH, Human [HumuLIN N] 10 unit SQ BID 08/24/13 [History] Insulin Regular, Human [HumuLIN R] 8 unit SUBCUT BIDAC 08/24/13 [History] Ondansetron [Zofran ODT] 4 mg PO Q6H PRN #15 tab.dis 02/25/19 [Rx] Sulfamethoxazole/Trimethoprim [Bactrim Ds Tablet] 1 each PO BID #10 tablet 02/25 [Rx] Oxygen Therapy Mode: Room Air Referrals: PCP,None [Primary Care Provider] - - Discharge Summary/Plan Comment DC Time >30 min.: No Discharge Summary/Plan Comment: Roxie was admitted for UTI and AMS. This morning she was alert and oriented, asking to be discharged home. She denies any concerns. She does not want help with sobriety and doesn't think her alcohol use is a concern. She did vomit prior to leaving and it was recommended she stay due to UTI and needing to keep PO antibiotics down. She refused and left AMA. I did send bactrim DS and Zofran to [facility]. I spoke with her daughter who understood the risk of her leaving. - Patient Data Vitals - Most Recent: Last Vital Signs Temp 97.7 F 02/25/19 07:05 Pulse 101 H 02/25/19 07:05 Resp 18 02/25/19 07:05 BP 138/60 02/25/19 07:05 Pulse Ox 97 02/25/19 07:05 Weight - Most Recent: 79 kg I&O - Last 24 hours: Intake & Output 02/24/19 02/25/19 02/25/19 22:59 06:59 14:59 Intake Total 1149 Balance 1149 Lab Results - Last 24 hrs: Laboratory Results - last 24 hr 02/24/19 02/24/19 02/24/19 Range/Units 18:45 18:45 18:45 WBC 15.77 H (4.0-11.0) K/uL RBC 4.79 (4.30-5.90) M/uL Hgb 15.4 (12.0-16.0) g/dL Hct 43.9 (36.0-46.0) % MCV 91.6 (80.0-98.0) fL MCH 32.2 H (27.0-32.0) pg MCHC 35.1 (31.0-37.0) g/dL RDW Std Deviation 42.7 (28.0-62.0) fl RDW Coeff of Natalie 13 (11.0-15.0) % Plt Count 233 (150-400) K/uL MPV 11.40 (7.40-12.00) fL Neut % (Auto) 85.3 H (48.0-80.0) % Lymph % (Auto) 6.6 L (16.0-40.0) % [place] % (Auto) 7.4 (0.0-15.0) % Eos % (Auto) 0.4 (0.0-7.0) % Baso % (Auto) 0.3 (0.0-1.5) % Neut # (Auto) 13.5 H (1.4-5.7) K/uL Lymph # (Auto) 1.0 (0.6-2.4) K/uL [place] # (Auto) 1.2 H (0.0-0.8) K/uL Eos # (Auto) 0.1 (0.0-0.7) K/uL Baso # (Auto) 0.0 (0.0-0.1) K/uL Nucleated RBC % /100WBC Nucleated RBCs # K/uL INR 1.00 VBG pH (7.31-7.41) VBG pCO2 (35-45) mmHG VBG pO2 (30-40) mmHG VBG HCO3 (22-30) mEq/L VBG Total CO2 (41-51) mmol/L VBG Base Excess (-3.0-3.0) Lactate (0.20-2.00) mmol/L Sodium 141 (136-145) mmol/L Potassium 4.4 (3.5-5.1) mmol/L Chloride 105 (98-107) mmol/L Carbon Dioxide 22.3 (21.0-32.0) mmol/L BUN 11 (7.0-18.0) mg/dL Creatinine 1.0 (0.6-1.0) mg/dL Est Cr Clr Drug Dosing 65.27 mL/min Estimated GFR (MDRD) > 60.0 ml/min Glucose 129 H (74-106) mg/dL POC Glucose (60-110) mg/dL Hemoglobin A1c (4.5-6.2) % Calcium 8.6 (8.5-10.1) mg/dL Phosphorus (2.6-4.7) mg/dL Magnesium 1.8 (1.8-2.4) mg/dL Total Bilirubin 0.6 (0.2-1.0) mg/dL AST 30 (15-37) IU/L ALT 18 (14-63) IU/L Alkaline Phosphatase 83 (46-116) U/L Ammonia (19-54) ug/dL Troponin I < 0.050 (0.000-0.056) ng/mL Total Protein 7.4 (6.4-8.2) g/dL Albumin 4.2 (3.4-5.0) g/dL Globulin 3.2 (2.6-4.0) g/dL Albumin/Globulin Ratio 1.3 (0.9-1.6) Amylase 84 (25-115) U/L Lipase 66 L (73-393) U/L Free T4 (0.76-1.46) ng/dL Free T3 (2.18-3.98) pg/mL TSH 3rd Generation 8.25 H (0.36-3.74) uIU/mL Urine Color Urine Appearance Urine pH (5.0-8.0) Ur Specific [place] (1.001-1.035) Urine Protein (NEGATIVE) mg/dL Urine Glucose (UA) (NEGATIVE) mg/dL Urine Ketones (NEGATIVE) mg/dL Urine Occult Blood (NEGATIVE) Urine Nitrite (NEGATIVE) Urine Bilirubin (NEGATIVE) Urine Urobilinogen (<2.0) EU/dL Ur Leukocyte Esterase (NEGATIVE) Urine RBC (0-2/HPF) Urine WBC (0-5/HPF) Ur Epithelial Cells (NONE-FEW) Urine Bacteria (NEGATIVE) Urine Mucus (NONE-MOD) Urine HCG, Qual (NEGATIVE) Salicylates 4.3 (0-20) mg/dL Urine Opiates Screen (NEGATIVE) Ur Oxycodone Screen (NEGATIVE) Urine Methadone Screen (NEGATIVE) Acetaminophen <2.0 ug/mL Ur Barbiturates Screen (NEGATIVE) Ur Phencyclidine Scrn (NEGATIVE) Ur Amphetamine Screen (NEGATIVE) U Methamphetamines Scrn (NEGATIVE) U Benzodiazepines Scrn (NEGATIVE) U Cocaine Metab Screen (NEGATIVE) U Marijuana (THC) Screen (NEGATIVE) Ethyl Alcohol 4 mg/dL 02/24/19 02/24/19 02/24/19 Range/Units 18:45 18:45 19:05 WBC (4.0-11.0) K/uL RBC (4.30-5.90) M/uL Hgb (12.0-16.0) g/dL Hct (36.0-46.0) % MCV (80.0-98.0) fL MCH (27.0-32.0) pg MCHC (31.0-37.0) g/dL RDW Std Deviation (28.0-62.0) fl RDW Coeff of Natalie (11.0-15.0) % Plt Count (150-400) K/uL MPV (7.40-12.00) fL Neut % (Auto) (48.0-80.0) % Lymph % (Auto) (16.0-40.0) % [place] % (Auto) (0.0-15.0) % Eos % (Auto) (0.0-7.0) % Baso % (Auto) (0.0-1.5) % Neut # (Auto) (1.4-5.7) K/uL Lymph # (Auto) (0.6-2.4) K/uL [place] # (Auto) (0.0-0.8) K/uL Eos # (Auto) (0.0-0.7) K/uL Baso # (Auto) (0.0-0.1) K/uL Nucleated RBC % /100WBC Nucleated RBCs # K/uL INR VBG pH 7.39 (7.31-7.41) VBG pCO2 39 (35-45) mmHG VBG pO2 35 (30-40) mmHG VBG HCO3 23 (22-30) mEq/L VBG Total CO2 21 L (41-51) mmol/L VBG Base Excess -1.4 (-3.0-3.0) Lactate (0.20-2.00) mmol/L Sodium (136-145) mmol/L Potassium (3.5-5.1) mmol/L Chloride (98-107) mmol/L Carbon Dioxide (21.0-32.0) mmol/L BUN (7.0-18.0) mg/dL Creatinine (0.6-1.0) mg/dL Est Cr Clr Drug Dosing mL/min Estimated GFR (MDRD) ml/min Glucose (74-106) mg/dL POC Glucose (60-110) mg/dL Hemoglobin A1c (4.5-6.2) % Calcium (8.5-10.1) mg/dL Phosphorus (2.6-4.7) mg/dL Magnesium (1.8-2.4) mg/dL Total Bilirubin (0.2-1.0) mg/dL AST (15-37) IU/L ALT (14-63) IU/L Alkaline Phosphatase (46-116) U/L Ammonia 22 (19-54) ug/dL Troponin I (0.000-0.056) ng/mL Total Protein (6.4-8.2) g/dL Albumin (3.4-5.0) g/dL Globulin (2.6-4.0) g/dL Albumin/Globulin Ratio (0.9-1.6) Amylase (25-115) U/L Lipase (73-393) U/L Free T4 (0.76-1.46) ng/dL Free T3 (2.18-3.98) pg/mL TSH 3rd Generation (0.36-3.74) uIU/mL Urine Color YELLOW Urine Appearance SLT CLOUDY Urine pH 5.5 (5.0-8.0) Ur Specific [place] >= 1.030 (1.001-1.035) Urine Protein TRACE H (NEGATIVE) mg/dL Urine Glucose (UA) NEGATIVE (NEGATIVE) mg/dL Urine Ketones 40 H (NEGATIVE) mg/dL Urine Occult Blood LARGE H (NEGATIVE) Urine Nitrite POSITIVE H (NEGATIVE) Urine Bilirubin NEGATIVE (NEGATIVE) Urine Urobilinogen 0.2 (<2.0) EU/dL Ur Leukocyte Esterase NEGATIVE (NEGATIVE) Urine RBC 35-40 (0-2/HPF) Urine WBC 3-5 (0-5/HPF) Ur Epithelial Cells FEW (NONE-FEW) Urine Bacteria 3+ H (NEGATIVE) Urine Mucus LIGHT (NONE-MOD) Urine HCG, Qual (NEGATIVE) Salicylates (0-20) mg/dL Urine Opiates Screen (NEGATIVE) Ur Oxycodone Screen (NEGATIVE) Urine Methadone Screen (NEGATIVE) Acetaminophen ug/mL Ur Barbiturates Screen (NEGATIVE) Ur Phencyclidine Scrn (NEGATIVE) Ur Amphetamine Screen (NEGATIVE) U Methamphetamines Scrn (NEGATIVE) U Benzodiazepines Scrn (NEGATIVE) U Cocaine Metab Screen (NEGATIVE) U Marijuana (THC) Screen (NEGATIVE) Ethyl Alcohol mg/dL 02/24/19 02/24/19 02/24/19 Range/Units 19:05 19:05 23:00 WBC (4.0-11.0) K/uL RBC (4.30-5.90) M/uL Hgb (12.0-16.0) g/dL Hct (36.0-46.0) % MCV (80.0-98.0) fL MCH (27.0-32.0) pg MCHC (31.0-37.0) g/dL RDW Std Deviation (28.0-62.0) fl RDW Coeff of Natalie (11.0-15.0) % Plt Count (150-400) K/uL MPV (7.40-12.00) fL Neut % (Auto) (48.0-80.0) % Lymph % (Auto) (16.0-40.0) % [place] % (Auto) (0.0-15.0) % Eos % (Auto) (0.0-7.0) % Baso % (Auto) (0.0-1.5) % Neut # (Auto) (1.4-5.7) K/uL Lymph # (Auto) (0.6-2.4) K/uL [place] # (Auto) (0.0-0.8) K/uL Eos # (Auto) (0.0-0.7) K/uL Baso # (Auto) (0.0-0.1) K/uL Nucleated RBC % /100WBC Nucleated RBCs # K/uL INR VBG pH (7.31-7.41) VBG pCO2 (35-45) mmHG VBG pO2 (30-40) mmHG VBG HCO3 (22-30) mEq/L VBG Total CO2 (41-51) mmol/L VBG Base Excess (-3.0-3.0) Lactate 0.6 (0.20-2.00) mmol/L Sodium (136-145) mmol/L Potassium (3.5-5.1) mmol/L Chloride (98-107) mmol/L Carbon Dioxide (21.0-32.0) mmol/L BUN (7.0-18.0) mg/dL Creatinine (0.6-1.0) mg/dL Est Cr Clr Drug Dosing mL/min Estimated GFR (MDRD) ml/min Glucose (74-106) mg/dL POC Glucose (60-110) mg/dL Hemoglobin A1c (4.5-6.2) % Calcium (8.5-10.1) mg/dL Phosphorus (2.6-4.7) mg/dL Magnesium (1.8-2.4) mg/dL Total Bilirubin (0.2-1.0) mg/dL AST (15-37) IU/L ALT (14-63) IU/L Alkaline Phosphatase (46-116) U/L Ammonia (19-54) ug/dL Troponin I (0.000-0.056) ng/mL Total Protein (6.4-8.2) g/dL Albumin (3.4-5.0) g/dL Globulin (2.6-4.0) g/dL Albumin/Globulin Ratio (0.9-1.6) Amylase (25-115) U/L Lipase (73-393) U/L Free T4 (0.76-1.46) ng/dL Free T3 (2.18-3.98) pg/mL TSH 3rd Generation (0.36-3.74) uIU/mL Urine Color Urine Appearance Urine pH (5.0-8.0) Ur Specific [place] (1.001-1.035) Urine Protein (NEGATIVE) mg/dL Urine Glucose (UA) (NEGATIVE) mg/dL Urine Ketones (NEGATIVE) mg/dL Urine Occult Blood (NEGATIVE) Urine Nitrite (NEGATIVE) Urine Bilirubin (NEGATIVE) Urine Urobilinogen (<2.0) EU/dL Ur Leukocyte Esterase (NEGATIVE) Urine RBC (0-2/HPF) Urine WBC (0-5/HPF) Ur Epithelial Cells (NONE-FEW) Urine Bacteria (NEGATIVE) Urine Mucus (NONE-MOD) Urine HCG, Qual NEGATIVE (NEGATIVE) Salicylates (0-20) mg/dL Urine Opiates Screen NEGATIVE (NEGATIVE) Ur Oxycodone Screen NEGATIVE (NEGATIVE) Urine Methadone Screen NEGATIVE (NEGATIVE) Acetaminophen ug/mL Ur Barbiturates Screen NEGATIVE (NEGATIVE) Ur Phencyclidine Scrn NEGATIVE (NEGATIVE) Ur Amphetamine Screen NEGATIVE (NEGATIVE) U Methamphetamines Scrn NEGATIVE (NEGATIVE) U Benzodiazepines Scrn NEGATIVE (NEGATIVE) U Cocaine Metab Screen NEGATIVE (NEGATIVE) U Marijuana (THC) Screen NEGATIVE (NEGATIVE) Ethyl Alcohol mg/dL 02/25/19 02/25/19 02/25/19 Range/Units 05:15 05:15 05:53 WBC 13.35 H (4.0-11.0) K/uL RBC 4.56 (4.30-5.90) M/uL Hgb 14.5 (12.0-16.0) g/dL Hct 43.2 (36.0-46.0) % MCV 94.7 (80.0-98.0) fL MCH 31.8 (27.0-32.0) pg MCHC 33.6 (31.0-37.0) g/dL RDW Std Deviation 46.6 (28.0-62.0) fl RDW Coeff of Natalie 14 (11.0-15.0) % Plt Count 237 (150-400) K/uL MPV 12.30 H (7.40-12.00) fL Neut % (Auto) 73.1 (48.0-80.0) % Lymph % (Auto) 14.9 L (16.0-40.0) % [place] % (Auto) 9.1 (0.0-15.0) % Eos % (Auto) 2.5 (0.0-7.0) % Baso % (Auto) 0.4 (0.0-1.5) % Neut # (Auto) 9.8 H (1.4-5.7) K/uL Lymph # (Auto) 2.0 (0.6-2.4) K/uL [place] # (Auto) 1.2 H (0.0-0.8) K/uL Eos # (Auto) 0.3 (0.0-0.7) K/uL Baso # (Auto) 0.1 (0.0-0.1) K/uL Nucleated RBC % 0.0 /100WBC Nucleated RBCs # 0 K/uL INR VBG pH (7.31-7.41) VBG pCO2 (35-45) mmHG VBG pO2 (30-40) mmHG VBG HCO3 (22-30) mEq/L VBG Total CO2 (41-51) mmol/L VBG Base Excess (-3.0-3.0) Lactate (0.20-2.00) mmol/L Sodium 139 (136-145) mmol/L Potassium 4.0 (3.5-5.1) mmol/L Chloride 105 (98-107) mmol/L Carbon Dioxide 19.9 L (21.0-32.0) mmol/L BUN 9 (7.0-18.0) mg/dL Creatinine 1.0 (0.6-1.0) mg/dL Est Cr Clr Drug Dosing 60.00 mL/min Estimated GFR (MDRD) > 60.0 ml/min Glucose 265 H (74-106) mg/dL POC Glucose 245 H (60-110) mg/dL Hemoglobin A1c (4.5-6.2) % Calcium 8.2 L (8.5-10.1) mg/dL Phosphorus 3.0 (2.6-4.7) mg/dL Magnesium 1.7 L (1.8-2.4) mg/dL Total Bilirubin (0.2-1.0) mg/dL AST (15-37) IU/L ALT (14-63) IU/L Alkaline Phosphatase (46-116) U/L Ammonia (19-54) ug/dL Troponin I (0.000-0.056) ng/mL Total Protein (6.4-8.2) g/dL Albumin (3.4-5.0) g/dL Globulin (2.6-4.0) g/dL Albumin/Globulin Ratio (0.9-1.6) Amylase (25-115) U/L Lipase (73-393) U/L Free T4 (0.76-1.46) ng/dL Free T3 (2.18-3.98) pg/mL TSH 3rd Generation (0.36-3.74) uIU/mL Urine Color Urine Appearance Urine pH (5.0-8.0) Ur Specific [place] (1.001-1.035) Urine Protein (NEGATIVE) mg/dL Urine Glucose (UA) (NEGATIVE) mg/dL Urine Ketones (NEGATIVE) mg/dL Urine Occult Blood (NEGATIVE) Urine Nitrite (NEGATIVE) Urine Bilirubin (NEGATIVE) Urine Urobilinogen (<2.0) EU/dL Ur Leukocyte Esterase (NEGATIVE) Urine RBC (0-2/HPF) Urine WBC (0-5/HPF) Ur Epithelial Cells (NONE-FEW) Urine Bacteria (NEGATIVE) Urine Mucus (NONE-MOD) Urine HCG, Qual (NEGATIVE) Salicylates (0-20) mg/dL Urine Opiates Screen (NEGATIVE) Ur Oxycodone Screen (NEGATIVE) Urine Methadone Screen (NEGATIVE) Acetaminophen ug/mL Ur Barbiturates Screen (NEGATIVE) Ur Phencyclidine Scrn (NEGATIVE) Ur Amphetamine Screen (NEGATIVE) U Methamphetamines Scrn (NEGATIVE) U Benzodiazepines Scrn (NEGATIVE) U Cocaine Metab Screen (NEGATIVE) U Marijuana (THC) Screen (NEGATIVE) Ethyl Alcohol mg/dL 02/25/19 02/25/19 02/25/19 Range/Units 06:24 06:24 11:43 WBC (4.0-11.0) K/uL RBC (4.30-5.90) M/uL Hgb (12.0-16.0) g/dL Hct (36.0-46.0) % MCV (80.0-98.0) fL MCH (27.0-32.0) pg MCHC (31.0-37.0) g/dL RDW Std Deviation (28.0-62.0) fl RDW Coeff of Natalie (11.0-15.0) % Plt Count (150-400) K/uL MPV (7.40-12.00) fL Neut % (Auto) (48.0-80.0) % Lymph % (Auto) (16.0-40.0) % [place] % (Auto) (0.0-15.0) % Eos % (Auto) (0.0-7.0) % Baso % (Auto) (0.0-1.5) % Neut # (Auto) (1.4-5.7) K/uL Lymph # (Auto) (0.6-2.4) K/uL [place] # (Auto) (0.0-0.8) K/uL Eos # (Auto) (0.0-0.7) K/uL Baso # (Auto) (0.0-0.1) K/uL Nucleated RBC % /100WBC Nucleated RBCs # K/uL INR VBG pH (7.31-7.41) VBG pCO2 (35-45) mmHG VBG pO2 (30-40) mmHG VBG HCO3 (22-30) mEq/L VBG Total CO2 (41-51) mmol/L VBG Base Excess (-3.0-3.0) Lactate (0.20-2.00) mmol/L Sodium (136-145) mmol/L Potassium (3.5-5.1) mmol/L Chloride (98-107) mmol/L Carbon Dioxide (21.0-32.0) mmol/L BUN (7.0-18.0) mg/dL Creatinine (0.6-1.0) mg/dL Est Cr Clr Drug Dosing mL/min Estimated GFR (MDRD) ml/min Glucose (74-106) mg/dL POC Glucose 346 H (60-110) mg/dL Hemoglobin A1c 7.4 H (4.5-6.2) % Calcium (8.5-10.1) mg/dL Phosphorus (2.6-4.7) mg/dL Magnesium (1.8-2.4) mg/dL Total Bilirubin (0.2-1.0) mg/dL AST (15-37) IU/L ALT (14-63) IU/L Alkaline Phosphatase (46-116) U/L Ammonia (19-54) ug/dL Troponin I (0.000-0.056) ng/mL Total Protein (6.4-8.2) g/dL Albumin (3.4-5.0) g/dL Globulin (2.6-4.0) g/dL Albumin/Globulin Ratio (0.9-1.6) Amylase (25-115) U/L Lipase (73-393) U/L Free T4 0.64 L (0.76-1.46) ng/dL Free T3 2.44 (2.18-3.98) pg/mL TSH 3rd Generation (0.36-3.74) uIU/mL Urine Color Urine Appearance Urine pH (5.0-8.0) Ur Specific [place] (1.001-1.035) Urine Protein (NEGATIVE) mg/dL Urine Glucose (UA) (NEGATIVE) mg/dL Urine Ketones (NEGATIVE) mg/dL Urine Occult Blood (NEGATIVE) Urine Nitrite (NEGATIVE) Urine Bilirubin (NEGATIVE) Urine Urobilinogen (<2.0) EU/dL Ur Leukocyte Esterase (NEGATIVE) Urine RBC (0-2/HPF) Urine WBC (0-5/HPF) Ur Epithelial Cells (NONE-FEW) Urine Bacteria (NEGATIVE) Urine Mucus (NONE-MOD) Urine HCG, Qual (NEGATIVE) Salicylates (0-20) mg/dL Urine Opiates Screen (NEGATIVE) Ur Oxycodone Screen (NEGATIVE) Urine Methadone Screen (NEGATIVE) Acetaminophen ug/mL Ur Barbiturates Screen (NEGATIVE) Ur Phencyclidine Scrn (NEGATIVE) Ur Amphetamine Screen (NEGATIVE) U Methamphetamines Scrn (NEGATIVE) U Benzodiazepines Scrn (NEGATIVE) U Cocaine Metab Screen (NEGATIVE) U Marijuana (THC) Screen (NEGATIVE) Ethyl Alcohol mg/dL Med Orders - Current: Current Medications Ceftriaxone Sodium/Dextrose 1 (gm/ Premix) 50 mls @ 100 mls/hr IV Q24H SARWAT Last Admin: 02/24/19 23:12 Dose: 100 mls/hr Insulin Aspart (Novolog) 0 unit SUBCUT TIDAC SARWAT; Protocol Last Admin: 02/25/19 07:58 Dose: 2 units Lorazepam (Ativan) 0 mg IVPUSH Q4H PRN; Protocol PRN Reason: Agitation Sodium Chloride (Saline Flush) 10 ml FLUSH ASDIRECTED PRN PRN Reason: Keep Vein Open Last Admin: 02/24/19 19:40 Dose: 10 ml Sodium Chloride (Saline Flush) 2.5 ml FLUSH ASDIRECTED PRN PRN Reason: Keep Vein Open Last Admin: 02/24/19 19:39 Dose: 2.5 ml Discontinued Medications Ceftriaxone Sodium (Rocephin) 1 gm IVPUSH Q24H [facility] Haloperidol Lactate (Haldol) 10 mg IM ONETIME ONE Stop: 02/24/19 18:58 Last Admin: 02/24/19 18:58 Dose: 10 mg Haloperidol Lactate (Haldol) Confirm Administered Dose 10 mg .ROUTE .STK-MED ONE Stop: 02/24/19 18:57 Last Admin: 02/24/19 20:01 Dose: Not Given Sodium Chloride (Normal Saline) 1,000 mls @ 999 mls/hr IV STAT ONE Stop: 02/24/19 19:14 Last Admin: 02/24/19 19:35 Dose: 999 mls/hr Multivitamins/Minerals 10 ml/Thiamine HCl 100 mg/ Folic Acid 1 mg/ Sodium Chloride 1,011.2 mls @ 250 mls/hr IV ONETIME ONE Stop: 02/24/19 22:59 Last Admin: 02/24/19 20:07 Dose: 250 mls/hr Ceftriaxone Sodium/Dextrose 1 (gm/ Premix) 50 mls @ 100 mls/hr IV ONETIME ONE Stop: 02/24/19 20:02 Last Admin: 02/24/19 23:43 Dose: Not Given Lorazepam (Ativan) 1 mg IVPUSH ONETIME ONE Stop: 02/24/19 18:59 Last Admin: 02/24/19 19:00 Dose: 1 mg Lorazepam (Ativan) Confirm Administered Dose 2 mg .ROUTE .STK-MED ONE Stop: 02/24/19 19:00 Last Admin: 02/24/19 20:01 Dose: Not Given Ondansetron HCl (Zofran Odt) 4 mg PO ONETIME ONE Stop: 02/25/19 11:52 Last Admin: 02/25/19 12:05 Dose: 4 mg
== END 2019-02-25 12:00 | disposition left against medical advice (07) ==
LOC: MW.ED 18:06 → MW.MS 19:44
PROVIDERS: ADMIT Internal Medicine; ATTEND Internal Medicine
DX: R41.82 Altered mental status, unspecified (principal); N39.0 Urinary tract infection, site not specified; E10.9 Type 1 diabetes mellitus without complications; F17.210 Nicotine dependence, cigarettes, uncomplicated; Z79.4 Long term (current) use of insulin
CPT/HCPCS: 36415; 70450; 71045; 80048; 80053; 80305; 80320; 80329; 81001; 81025; 82140; 82150; 82803; 82962; 83036; 83605; 83690; 83735; 84100; 84439; 84443; 84481; 84484; 85025; 85610; 87086; 87088; 87186; 93005; 96361; 96365; 96366; 96368; 96372; 96375; 99285; A9270; G0378; J0696; J1630; J1815; J2060; J3411; J7030; G0480

== ENCOUNTER 2020-08-22 13:28 | Emergency (ER) | payer MEDICAID ==
[2020-08-22] MEDS ORDERED: Sodium Chloride 0.9% 2.5 ML Syringe FLUSH PRN (13:30)
[2020-08-22] MEDS ORDERED: Sodium Chloride 0.9% 10 ML Syringe FLUSH PRN (13:30)
[2020-08-22] MEDS ORDERED: Sodium Chloride 0.9% 1,000 ML IV ONE ×2 (13:30→14:39)
--- NOTE | 2020-08-22 13:50 | EDM.PDOC ---
ED HPI GENERAL MEDICAL PROBLEM - General Chief Complaint: Neurological Problem Stated Complaint: LOW BLOOD SUGAR Time Seen by Provider: 08/22/20 13:30 Source of Information: Reports: Patient History Limitations: Reports: No Limitations - History of Present Illness INITIAL COMMENTS - FREE TEXT/NARRATIVE: 45-year-old female past medical history type 1 insulin-dependent diabetes, alcohol abuse presents for possible seizure. Patient is a poor historian. Per EMS patient was witnessed to have a seizure-like event at a local bar. On arrival patient was not seizing but did have decreased mental state. Blood sugar was checked and noted to be 50. 1/2 amp of D50 was given and patient's clinical status improved. Patient has a very flat affect and depressed mood and is not very cooperative to answering questions. She is uncertain of what happened today. She is uncertain if she had any alcohol. She denies drug use. She states that she has had seizures in the past but she is not currently on antiepileptic drugs. Per chart searching it looks like patient may have had seizure-like events secondary to hypoglycemia in the past rather than actual seizures. Patient currently denies any complaints. 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: Musculoskeletal History: Reports: Fracture, Other (See Below) Other Musculoskeletal History: r arm fracture 6 years ago Endocrine/Metabolic History: Reports: Diabetes, Type I - Infectious Disease History Infectious Disease History: Reports: Chicken Pox - Past Surgical History HEENT Surgical History: Reports: None Female Surgical History: Reports: Section Social & Family History - Family History Family Medical History: No Pertinent Family History - Tobacco Use Tobacco Use Status *Q: Current Every Day Tobacco User Years of Tobacco use: 10 Packs/Tins Daily: 0.7 - Caffeine Use Caffeine Use: Reports: None - Recreational Drug Use Recreational Drug Use: No ED ROS GENERAL - Review of Systems Review Of Systems: Comprehensive ROS is negative, except as noted in HPI. ED EXAM, GENERAL - Physical Exam Exam: See Below Exam Limited By: No Limitations General Appearance: Alert, WD/WN, No Apparent Distress Eye Exam: Bilateral Eye: EOMI, PERRL Throat/Mouth: Normal Voice, No Airway Compromise Head: Atraumatic, Normocephalic Neck: Normal Inspection Respiratory/Chest: No Respiratory Distress, Lungs Clear, Normal Breath Sounds, No Accessory Muscle Use Cardiovascular: Normal Peripheral Pulses, Tachycardia GI/Abdominal: Soft, Non-Tender Extremities: Normal Inspection Neurological: Alert, CN II-XII Intact, Normal Cognition, No Motor/Sensory Deficits Psychiatric: Depressed Mood, Flat Affect Skin Exam: Warm, Dry, Intact, Normal Color #1 Interpretation EKG Date: 08/22/20 Time: 13:48 Rhythm: NSR Rate (Beats/Min): 101 [place]: Normal P-Wave: Present QRS: Normal ST-T: Normal QT: Normal LA/PQ Interval: 127 EKG Interpretation Comments: normal EKG Course - Vital Signs Last Recorded V/S: Last Vital Signs Temp 98.1 F 08/22/20 16:44 Pulse 95 08/22/20 16:44 Resp 20 08/22/20 16:44 BP 123/67 08/22/20 16:44 Pulse Ox 100 08/22/20 16:44 - Orders/Labs/Meds Orders: Active Orders 24 hr Category Date Time Status Accu Check [Blood Glucose Check, Bedside] [RC] ONETIME Care 08/22/20 17:12 Active EKG Documentation Completion [RC] STAT Care 08/22/20 13:30 Active Pulse Oximetry [RC] ASDIRECTED Care 08/22/20 13:30 Active REFLEX LACTIC ACID YES OR NO [CHEM] Routine Lab 08/22/20 14:32 Received Sodium Chloride 0.9% [Saline Flush] Med 08/22/20 13:30 Active 10 ml FLUSH ASDIRECTED PRN Sodium Chloride 0.9% [Saline Flush] Med 08/22/20 13:30 Active 2.5 ml FLUSH ASDIRECTED PRN Saline Lock Insert [OM.PC] Stat Oth 08/22/20 13:30 Ordered Medication Orders Sodium Chloride (Sodium Chloride 0.9% 10 Ml Syringe) 10 ml FLUSH ASDIRECTED PRN PRN Reason: Keep Vein Open Last Admin: 08/22/20 13:55 Dose: 10 ml Documented by: COSTA Sodium Chloride (Sodium Chloride 0.9% 2.5 Ml Syringe) 2.5 ml FLUSH ASDIRECTED PRN PRN Reason: Keep Vein Open Last Admin: 08/22/20 13:55 Dose: 2.5 ml Documented by: COSTA Labs: Laboratory Tests 08/22/20 08/22/20 08/22/20 Range/Units 13:57 13:57 13:57 WBC 16.98 H (4.0-11.0) K/uL RBC 4.90 (4.30-5.90) M/uL Hgb 15.6 (12.0-16.0) g/dL Hct 45.5 (36.0-46.0) % MCV 92.9 (80.0-98.0) fL MCH 31.8 (27.0-32.0) pg MCHC 34.3 (31.0-37.0) g/dL RDW Std Deviation 43.4 (28.0-62.0) fl RDW Coeff of Natalie 13 (11.0-15.0) % Plt Count 271 (150-400) K/uL MPV 12.00 (7.40-12.00) fL Neut % (Auto) 90.1 H (48.0-80.0) % Lymph % (Auto) 4.5 L (16.0-40.0) % [place] % (Auto) 4.7 (0.0-15.0) % Eos % (Auto) 0.6 (0.0-7.0) % Baso % (Auto) 0.1 (0.0-1.5) % Neut # (Auto) 15.3 H (1.4-5.7) K/uL Lymph # (Auto) 0.8 (0.6-2.4) K/uL [place] # (Auto) 0.8 (0.0-0.8) K/uL Eos # (Auto) 0.1 (0.0-0.7) K/uL Baso # (Auto) 0.0 (0.0-0.1) K/uL Nucleated RBC % 0.0 /100WBC Nucleated RBCs # 0 K/uL Sodium 138 (136-145) mmol/L Potassium 4.3 (3.5-5.1) mmol/L Chloride 105 (98-107) mmol/L Carbon Dioxide 19.1 L (21.0-32.0) mmol/L BUN 5 L (7.0-18.0) mg/dL Creatinine 0.9 (0.6-1.0) mg/dL Est Cr Clr Drug Dosing 68.88 mL/min Estimated GFR (MDRD) > 60.0 ml/min Glucose 50 L (74-106) mg/dL POC Glucose (70-99) mg/dL Lactic Acid 3.2 H* (0.4-2.0) mmol/L Calcium 8.4 L (8.5-10.1) mg/dL Magnesium 2.1 (1.8-2.4) mg/dL Total Bilirubin 0.3 (0.2-1.0) mg/dL AST 20 (15-37) IU/L ALT 23 (14-63) IU/L Alkaline Phosphatase 97 (46-116) U/L Total Protein 7.7 (6.4-8.2) g/dL Albumin 4.0 (3.4-5.0) g/dL Globulin 3.7 (2.6-4.0) g/dL Albumin/Globulin Ratio 1.1 (0.9-1.6) Urine Color Urine Appearance Urine pH (5.0-8.0) Ur Specific [place] (1.001-1.035) Urine Protein (NEGATIVE) mg/dL Urine Glucose (UA) (NEGATIVE) mg/dL Urine Ketones (NEGATIVE) mg/dL Urine Occult Blood (NEGATIVE) Urine Nitrite (NEGATIVE) Urine Bilirubin (NEGATIVE) Urine Urobilinogen (<2.0) EU/dL Ur Leukocyte Esterase (NEGATIVE) Urine HCG, Qual (NEGATIVE) Urine Opiates Screen (NEGATIVE) Ur Oxycodone Screen (NEGATIVE) Urine Methadone Screen (NEGATIVE) Ur Barbiturates Screen (NEGATIVE) Ur Phencyclidine Scrn (NEGATIVE) Ur Amphetamine Screen (NEGATIVE) U Methamphetamines Scrn (NEGATIVE) U Benzodiazepines Scrn (NEGATIVE) U Cocaine Metab Screen (NEGATIVE) U Marijuana (THC) Screen (NEGATIVE) Ethyl Alcohol < 3.0 mg/dL 08/22/20 08/22/20 08/22/20 Range/Units 14:19 14:48 15:52 WBC (4.0-11.0) K/uL RBC (4.30-5.90) M/uL Hgb (12.0-16.0) g/dL Hct (36.0-46.0) % MCV (80.0-98.0) fL MCH (27.0-32.0) pg MCHC (31.0-37.0) g/dL RDW Std Deviation (28.0-62.0) fl RDW Coeff of Natalie (11.0-15.0) % Plt Count (150-400) K/uL MPV (7.40-12.00) fL Neut % (Auto) (48.0-80.0) % Lymph % (Auto) (16.0-40.0) % [place] % (Auto) (0.0-15.0) % Eos % (Auto) (0.0-7.0) % Baso % (Auto) (0.0-1.5) % Neut # (Auto) (1.4-5.7) K/uL Lymph # (Auto) (0.6-2.4) K/uL [place] # (Auto) (0.0-0.8) K/uL Eos # (Auto) (0.0-0.7) K/uL Baso # (Auto) (0.0-0.1) K/uL Nucleated RBC % /100WBC Nucleated RBCs # K/uL Sodium (136-145) mmol/L Potassium (3.5-5.1) mmol/L Chloride (98-107) mmol/L Carbon Dioxide (21.0-32.0) mmol/L BUN (7.0-18.0) mg/dL Creatinine (0.6-1.0) mg/dL Est Cr Clr Drug Dosing mL/min Estimated GFR (MDRD) ml/min Glucose (74-106) mg/dL POC Glucose 36 L* 138 H 117 H (70-99) mg/dL Lactic Acid (0.4-2.0) mmol/L Calcium (8.5-10.1) mg/dL Magnesium (1.8-2.4) mg/dL Total Bilirubin (0.2-1.0) mg/dL AST (15-37) IU/L ALT (14-63) IU/L Alkaline Phosphatase (46-116) U/L Total Protein (6.4-8.2) g/dL Albumin (3.4-5.0) g/dL Globulin (2.6-4.0) g/dL Albumin/Globulin Ratio (0.9-1.6) Urine Color Urine Appearance Urine pH (5.0-8.0) Ur Specific [place] (1.001-1.035) Urine Protein (NEGATIVE) mg/dL Urine Glucose (UA) (NEGATIVE) mg/dL Urine Ketones (NEGATIVE) mg/dL Urine Occult Blood (NEGATIVE) Urine Nitrite (NEGATIVE) Urine Bilirubin (NEGATIVE) Urine Urobilinogen (<2.0) EU/dL Ur Leukocyte Esterase (NEGATIVE) Urine HCG, Qual (NEGATIVE) Urine Opiates Screen (NEGATIVE) Ur Oxycodone Screen (NEGATIVE) Urine Methadone Screen (NEGATIVE) Ur Barbiturates Screen (NEGATIVE) Ur Phencyclidine Scrn (NEGATIVE) Ur Amphetamine Screen (NEGATIVE) U Methamphetamines Scrn (NEGATIVE) U Benzodiazepines Scrn (NEGATIVE) U Cocaine Metab Screen (NEGATIVE) U Marijuana (THC) Screen (NEGATIVE) Ethyl Alcohol mg/dL 08/22/20 08/22/20 08/22/20 Range/Units 16:47 16:47 16:47 WBC (4.0-11.0) K/uL RBC (4.30-5.90) M/uL Hgb (12.0-16.0) g/dL Hct (36.0-46.0) % MCV (80.0-98.0) fL MCH (27.0-32.0) pg MCHC (31.0-37.0) g/dL RDW Std Deviation (28.0-62.0) fl RDW Coeff of Natalie (11.0-15.0) % Plt Count (150-400) K/uL MPV (7.40-12.00) fL Neut % (Auto) (48.0-80.0) % Lymph % (Auto) (16.0-40.0) % [place] % (Auto) (0.0-15.0) % Eos % (Auto) (0.0-7.0) % Baso % (Auto) (0.0-1.5) % Neut # (Auto) (1.4-5.7) K/uL Lymph # (Auto) (0.6-2.4) K/uL [place] # (Auto) (0.0-0.8) K/uL Eos # (Auto) (0.0-0.7) K/uL Baso # (Auto) (0.0-0.1) K/uL Nucleated RBC % /100WBC Nucleated RBCs # K/uL Sodium (136-145) mmol/L Potassium (3.5-5.1) mmol/L Chloride (98-107) mmol/L Carbon Dioxide (21.0-32.0) mmol/L BUN (7.0-18.0) mg/dL Creatinine (0.6-1.0) mg/dL Est Cr Clr Drug Dosing mL/min Estimated GFR (MDRD) ml/min Glucose (74-106) mg/dL POC Glucose (70-99) mg/dL Lactic Acid (0.4-2.0) mmol/L Calcium (8.5-10.1) mg/dL Magnesium (1.8-2.4) mg/dL Total Bilirubin (0.2-1.0) mg/dL AST (15-37) IU/L ALT (14-63) IU/L Alkaline Phosphatase (46-116) U/L Total Protein (6.4-8.2) g/dL Albumin (3.4-5.0) g/dL Globulin (2.6-4.0) g/dL Albumin/Globulin Ratio (0.9-1.6) Urine Color YELLOW Urine Appearance CLEAR Urine pH 6.0 (5.0-8.0) Ur Specific [place] 1.010 (1.001-1.035) Urine Protein NEGATIVE (NEGATIVE) mg/dL Urine Glucose (UA) NEGATIVE (NEGATIVE) mg/dL Urine Ketones NEGATIVE (NEGATIVE) mg/dL Urine Occult Blood NEGATIVE (NEGATIVE) Urine Nitrite NEGATIVE (NEGATIVE) Urine Bilirubin NEGATIVE (NEGATIVE) Urine Urobilinogen 0.2 (<2.0) EU/dL Ur Leukocyte Esterase NEGATIVE (NEGATIVE) Urine HCG, Qual NEGATIVE (NEGATIVE) Urine Opiates Screen NEGATIVE (NEGATIVE) Ur Oxycodone Screen NEGATIVE (NEGATIVE) Urine Methadone Screen NEGATIVE (NEGATIVE) Ur Barbiturates Screen NEGATIVE (NEGATIVE) Ur Phencyclidine Scrn NEGATIVE (NEGATIVE) Ur Amphetamine Screen NEGATIVE (NEGATIVE) U Methamphetamines Scrn NEGATIVE (NEGATIVE) U Benzodiazepines Scrn NEGATIVE (NEGATIVE) U Cocaine Metab Screen NEGATIVE (NEGATIVE) U Marijuana (THC) Screen NEGATIVE (NEGATIVE) Ethyl Alcohol mg/dL Meds: Medications Generic Name Dose Route Start Last Admin Trade Name Laurel PRN Reason Stop Dose Admin Sodium Chloride 10 ml 08/22/20 13:30 08/22/20 13:55 Sodium Chloride 0.9% 10 Ml Syringe FLUSH 10 ml ASDIRECTED PRN Administration Keep Vein Open Sodium Chloride 2.5 ml 08/22/20 13:30 08/22/20 13:55 Sodium Chloride 0.9% 2.5 Ml Syringe FLUSH 2.5 ml ASDIRECTED PRN Administration Keep Vein Open Discontinued Medications Generic Name Dose Route Start Last Admin Trade Name Laurel PRN Reason Stop Dose Admin Dextrose/Water Confirm 08/22/20 14:21 08/22/20 14:25 50% Dextrose In Water 50 Ml Syringe Administered 08/22/20 14:22 Not Given Dose 50 ml .ROUTE .STK-MED ONE Dextrose/Water 50 ml 08/22/20 14:24 08/22/20 14:25 50% Dextrose In Water 50 Ml Syringe IVPUSH 08/22/20 14:25 50 ml ONETIME ONE Administration Sodium Chloride 1,000 mls @ 999 mls/hr 08/22/20 13:30 08/22/20 13:53 Normal Saline IV 08/22/20 14:30 999 mls/hr .Bolus ONE Administration Sodium Chloride 1,000 mls @ 999 mls/hr 08/22/20 14:39 08/22/20 14:43 Normal Saline IV 08/22/20 15:39 999 mls/hr .Bolus ONE Administration - Re-Assessments/Exams Free Text/Narrative Re-Assessment/Exam: 08/22/20 14:29 Patient reported that she was feeling like her blood sugar was getting low. [id number] glucose was performed and it was only 39. 1 amp of D50 was given and food was provided to the patient. 08/22/20 17:12 Patient is feeling much better. Will get a repeat blood glucose to ensure its not going down. Patient is much more talkative now. She states that her doctor has been switching up her insulin and that she does not like her doctor and she wants a second opinion because her old insulin work better. Departure - Departure Time of Disposition: 17:14 Disposition: Home, Self-Care 01 Condition: Good Clinical Impression: Hypoglycemia - Discharge Information Instructions: Hypoglycemia Referrals: PCP,None [Primary Care Provider] - Forms: ED Department Discharge Additional Instructions: Please check your glucose level frequently over the next couple of days. If your glucose level is low you should drink a soda, orange juice, or eat some peanut butter. You should then eat a full meal so that it does not fall after it spikes from the sugar that you eat or drink. You need to follow-up with your primary care physician to come up with a plan as you have had a few episodes of hypoglycemia like this and it can be very dangerous. The following information is given to patients seen in the emergency department who are being discharged to home. This information is to outline your options for follow-up care. We provide all patients seen in our emergency department with a follow-up referral. The need for follow-up, as well as the timing and circumstances, are variable depending upon the specifics of your emergency department visit. If you don't have a primary care physician on staff, we will provide you with a referral. We always advise you to contact your personal physician following an emergency department visit to inform them of the circumstance of the visit and for follow-up with them and/or the need for any referrals to a consulting specialist. The emergency department will also refer you to a specialist when appropriate. This referral assures that you have the opportunity for follow-up care with a specialist. All of these measure are taken in an effort to provide you with optimal care, which includes your follow-up. Under all circumstances we always encourage you to contact your private physician who remains a resource for coordinating your care. When calling for follow-up care, please make the office aware that this follow-up is from your recent emergency room visit. If for any reason you are refused follow-up, please contact the [facility] Emergency Department at and asked to speak to the emergency department charge nurse. Please follow up with your primary care physician. If you do not have a primary care physician, see below: [facility] [address] [place] [id number] [facility] [address] [place] [address] [facility] [address] [place] [id number] Sepsis Event Note (ED) - Evaluation Sepsis Screening Result: No Definite Risk - Focused Exam Vital Signs: Vital Signs Temp Pulse Resp BP Pulse Ox 08/22/20 16:44 98.1 F 95 20 123/67 100 08/22/20 13:29 97.5 F 112 H 18 133/71 97 - My Orders Last 24 Hours: My Active Orders 08/22/20 13:30 EKG Documentation Completion [RC] STAT Pulse Oximetry [RC] ASDIRECTED Sodium Chloride 0.9% [Saline Flush] 10 ml FLUSH ASDIRECTED PRN Sodium Chloride 0.9% [Saline Flush] 2.5 ml FLUSH ASDIRECTED PRN Saline Lock Insert [OM.PC] Stat 08/22/20 14:32 REFLEX LACTIC ACID YES OR NO [CHEM] Routine 08/22/20 17:12 Accu Check [Blood Glucose Check, Bedside] [RC] ONETIME - Assessment/Plan Last 24 Hours: My Active Orders 08/22/20 13:30 EKG Documentation Completion [RC] STAT Pulse Oximetry [RC] ASDIRECTED Sodium Chloride 0.9% [Saline Flush] 10 ml FLUSH ASDIRECTED PRN Sodium Chloride 0.9% [Saline Flush] 2.5 ml FLUSH ASDIRECTED PRN Saline Lock Insert [OM.PC] Stat 08/22/20 14:32 REFLEX LACTIC ACID YES OR NO [CHEM] Routine 08/22/20 17:12 Accu Check [Blood Glucose Check, Bedside] [RC] ONETIME
[2020-08-22] MEDS ORDERED: 50% Dextrose in Water 50 ML Syringe ONE (14:21)
[2020-08-22] MEDS ORDERED: 50% Dextrose in Water 50 ML Syringe IVPUSH ONE (14:24)
[2020-08-22 14:53] LABS: BLOOD UREA NITROGEN,BUN 5 mg/dL (7.0-18.0); CARBON DIOXIDE,CO2 19.1 mmol/L (21.0-32.0); CHLORIDE,CL 105 mmol/L (98-107); GLUCOSE RANDOM 50 mg/dL (74-106); POTASSIUM,K 4.3 mmol/L (3.5-5.1); SODIUM,NA 138 mmol/L (136-145)
--- NOTE | 2020-08-22 15:58 | CR ---
INDICATION: Syncope versus seizure. TECHNIQUE: AP portable chest x-ray. COMPARISON: 02/24/2019 chest x-ray. FINDINGS: Pulmonary vascularity in the upper lungs is mildly increased and this is new consistent with mild pulmonary venous congestion. Old fracture deformity of the right 6th posterior rib stable. No pulmonary infiltrate. Lungs are clear. Heart size normal. Chest otherwise negative without acute disease. Dictated by Babatunde Whyte MD @ 08/22/2020 3:56:[address] Babatunde Whyte @ Aug 22 2020 3:56PM
== END 2020-08-22 17:24 | disposition home or self-care (01) ==
LOC: MW.ED 13:28
DX: E10.649 Type 1 diabetes mellitus with hypoglycemia without coma (principal); Z72.0 Tobacco use
CPT/HCPCS: 36415; 71045; 80053; 80305; 80307; 81003; 81025; 82947; 83605; 83735; 85025; 93005; 96374; 99285; J7030; 93010; 99284

== ENCOUNTER 2022-10-15 09:34 | Emergency (ER) | payer MEDICAID ==
[2022-10-15] MEDS ORDERED: Sodium Chloride 0.9% 2.5 ML Syringe FLUSH PRN (09:36)
[2022-10-15] MEDS ORDERED: Sodium Chloride 0.9% 1,000 ML IV ONE ×2 (09:36→11:10)
[2022-10-15] MEDS ORDERED: Sodium Chloride 0.9% 10 ML Syringe FLUSH PRN (09:36)
[2022-10-15] MEDS ORDERED: 50% Dextrose in Water 50 ML Syringe IVPUSH ONE ×3 (09:38→10:45)
[2022-10-15 09:42] LABS: BASE EXCESS VENOUS -13.6 (-2.0-3.0); PH,VENOUS 7.07 (7.31-7.41)
[2022-10-15] MEDS ORDERED: Dextrose 10% in Water 500 ML IV SCH (09:45)
[2022-10-15 10:01] LABS: INR 1.03 (0.86-1.11); PTT,PARTIAL THROMBOPLSTIN TIME 24.5 SEC (23.9-30.7)
[2022-10-15 10:06] LABS: LACTIC ACID 9.8 mmol/L (0.4-2.0)
[2022-10-15 10:11] LABS: BASOPHILS ABSOLUTE AUTO 0.1 K/uL (0.0-0.1); BASOPHILS PERCENT AUTO 0.6 % (0.0-1.5); EOSINOPHILS ABSOLUTE AUTO 0.9 K/uL (0.0-0.7); EOSINOPHILS PERCENT AUTO 5.8 % (0.0-7.0); HEMATOCRIT 50.9 % (36.0-46.0); HEMOGLOBIN 16.8 g/dL (12.0-16.0); LYMPHOCYTES PERCENT AUTO 46.1 % (16.0-40.0); MEAN CORPUSCULAR HEMOGLOBIN 31.3 pg (27.0-32.0); MEAN CORPUSCULAR VOLUME 94.8 fL (80.0-98.0); MONOCYTES ABSOLUTE AUTO 1.5 K/uL (0.0-0.8); MONOCYTES PERCENT AUTO 9.6 % (0.0-15.0); NEUTROPHILS ABSOLUTE AUTO 5.7 K/uL (1.4-5.7); NEUTROPHILS PERCENT AUTO 37.9 % (48.0-80.0); NRBC ABSOLUTE 0 K/uL; NRBC PERCENT 0.1 /100WBC; PLATELET COUNT,PLT 297 K/uL (150-400); RED BLOOD CELL COUNT 5.37 M/uL (4.30-5.90); WHITE BLOOD CELL COUNT,WBC 15.13 K/uL (4.0-11.0)
[2022-10-15 10:12] LABS: A/G RATIO 1.1 (0.9-1.6); ALANINE AMINOTRANSFERASE,ALT 24 IU/L (14-63); ALBUMIN 4.5 g/dL (3.4-5.0); ALKALINE PHOSPHATASE 120 U/L (46-116); ASPARTATE AMNIOTRANSFERASE,AST 20 IU/L (15-37); BILIRUBIN TOTAL 0.4 mg/dL (0.2-1.0); BLOOD UREA NITROGEN,BUN 13 mg/dL (7.0-18.0); CALCIUM 9.3 mg/dL (8.5-10.1); CARBON DIOXIDE,CO2 18.4 mmol/L (21.0-32.0); CHLORIDE,CL 107 mmol/L (98-107); CREATININE 1.3 mg/dL (0.6-1.0); EST CRCL DRUG DOSING (CG) 50.62 mL/min; ETHANOL BLOOD MEDICAL <3 mg/dL; LIPASE 92 U/L (73-393); MAGNESIUM 1.9 mg/dL (1.8-2.4); PHOSPHORUS 2.9 mg/dL (2.6-4.7); POTASSIUM,K 3.8 mmol/L (3.5-5.1); PROTEIN TOTAL,TP 8.6 g/dL (6.4-8.2); SODIUM,NA 147 mmol/L (136-145); TSH ULTRASENSITIVE 4.97 uIU/mL (0.36-3.74)
[2022-10-15 10:14] LABS: ESTIMATED GFR 51 mL/min (>60)
[2022-10-15 10:15] LABS: GLUCOSE RANDOM 30 mg/dL (74-106)
[2022-10-15] MEDS ORDERED: Piperacillin/Tazobactam 3.375 GM in Sodium Chloride 0.9% 100 ML IV ONE (10:18)
[2022-10-15 10:42] LABS: T4 FREE 0.92 ng/dL (0.76-1.46)
[2022-10-15 12:16] LABS: BILIRUBIN,URINE NEGATIVE (NEGATIVE); COLOR,URINE YELLOW; GLUCOSE,URINE 500 mg/dL (NEGATIVE); KETONES,URINE NEGATIVE (NEGATIVE); LEUKOCYTE ESTERASE,URINE SMALL (NEGATIVE); NITRITE,URINE POSITIVE (NEGATIVE); OCCULT BLOOD,URINE TRACE-INTACT (NEGATIVE); PROTEIN,URINE 30 mg/dL (NEGATIVE); UROBILINOGEN,URINE 0.2 EU/dL (<2.0)
[2022-10-15 12:26] LABS: AMPHETAMINES SCREEN, URINE NEGATIVE (CUTOFF=500); BARBITURATE SCREEN,URINE NEGATIVE (CUTOFF=200); BENZODIAZEPINES SCREEN,URINE NEGATIVE (CUTOFF=150); BUPRENORPHINE SCREEN,URINE NEGATIVE (CUTOFF=10); METHADONE SCREEN, URINE NEGATIVE (CUTOFF=200); METHAMPHETAMINES SCREEN, URINE NEGATIVE (CUTOFF=500); OXYCODONE SCREEN,URINE NEGATIVE (CUT0FF=100); PCP SCREEN,URINE NEGATIVE (CUTOFF=25); PROPOXYPHENE SCREEN,URINE NEGATIVE (CUTOFF=300); THC SCREEN,URINE 20 NG/ML NEGATIVE (CUTOFF=50)
[2022-10-15 12:27] LABS: APPEARANCE,URINE SLT CLOUDY; BACTERIA,URINE 2+ (NEGATIVE); EPITHELIAL CELLS,URINE RARE (NONE-FEW); RBC,URINE 0-1 (0-2/HPF); WBC,URINE 15-18 (0-5/HPF)
== END 2022-10-15 13:07 | disposition left against medical advice (07) ==
LOC: MW.ED 09:34
DX: E10.649 Type 1 diabetes mellitus with hypoglycemia without coma (principal); Z72.0 Tobacco use
CPT/HCPCS: 36415; 70450; 71045; 80053; 80305; 80307; 81001; 82803; 82947; 83605; 83690; 83735; 84100; 84439; 84443; 84484; 85025; 85610; 85730; 87040; 93005; 96361; 96365; 96366; 96368; 96375; 99285; J2543; J3490; J7030; 93010; 99291